=== PATIENT | female | born 1970 | race Caucasian/White ===

== ENCOUNTER → 2018-07-27 | Outpatient (CLI) | payer MEDICAID | END | disposition home or self-care (01) | LOC: RAH 09:11 | PROVIDERS: ATTEND Physician Assistant Medical | DX: Z12.31 Encounter for screening mammogram for malignant neoplasm of breast (principal) | CPT/HCPCS: 77067 ==

== ENCOUNTER → 2019-10-23 | Outpatient (CLI) | payer MEDICAID | END | disposition home or self-care (01) | LOC: RAH 13:54 | PROVIDERS: ATTEND Family Medicine | DX: Z12.31 Encounter for screening mammogram for malignant neoplasm of breast (principal) | CPT/HCPCS: 77067 ==

== ENCOUNTER → 2020-10-26 | Outpatient (CLI) | payer MEDICAID | END | disposition home or self-care (01) | LOC: RAH 15:27 | PROVIDERS: ATTEND Obstetrics & Gynecology | DX: Z12.31 Encounter for screening mammogram for malignant neoplasm of breast (principal) | CPT/HCPCS: 77067 ==

== ENCOUNTER → 2022-09-01 | Outpatient (CLI) | payer MEDICAID | END | disposition home or self-care (01) | LOC: RAH 11:06 | PROVIDERS: ATTEND Family Medicine | DX: N64.4 Mastodynia (principal) | CPT/HCPCS: 77066 ==

== ENCOUNTER 2023-02-06 10:33 | Emergency (ER) | payer MEDICAID ==
[~2023-02-06] VITALS: Ht 162.6 cm; Wt 95.3 kg
[2023-02-06] MEDS ORDERED: KETOROLAC 15MG/ML VIAL (15MG/ML) IV ONE ×2 (12:00→16:30)
[2023-02-06 12:02] LABS: BASOPHILS # (AUTO) 0.05 K/uL (0.00-0.20); BASOPHILS % (AUTO) 0.6 % (0.0-5.0); EOSINOPHILS # (AUTO) 0.11 K/uL (0.00-0.70); EOSINOPHILS % (AUTO) 1.3 % (0.0-8.0); HEMATOCRIT 38.5 % (36-48); IMMATURE GRANULOCYTE ABSOLUTE 0.02 K/uL (0-1); LYMPHOCYTES # (AUTO) 2.5 K/uL (1.0-4.8); LYMPHOCYTES % (AUTO) 30.1 % (21.0-51.0); MEAN CORPUSCULAR HEMOGLOBIN 30.5 pg (27.0-33.0); MEAN CORPUSCULAR VOLUME 92.3 fL (79-99); MONOCYTES # (AUTO) 0.6 K/uL (0.1-1.0); MONOCYTES % (AUTO) 7.3 % (3.0-13.0); NEUTROPHILS # (AUTO) 5.1 K/uL (1.8-7.7); NEUTROPHILS % (AUTO) 60.5 % (40.0-77.0); PLATELET COUNT (AUTO) 194 K/uL (130-400); RED BLOOD CELL COUNT(AUTO) 4.17 MIL/uL (4.00-5.50); RED CELL DISTRIBUTION WIDTH 12.1 % (11.0-15.5); WHITE BLOOD COUNT (AUTO) 8.4 K/uL (4.8-10.8)
[2023-02-06 12:18] LABS: ALBUMIN 3.5 g/dL (3.5-5.0); BILIRUBIN,TOTAL 0.3 mg/dL (0.2-1.0); CREATININE 0.9 mg/dL (0.5-1.5); POTASSIUM 3.3 mmol/L (3.5-5.1); TOTAL PROTEIN, SERUM 7.4 g/dL (6.0-8.3)
[2023-02-06 12:22] LABS: B-TYPE NATRIURETIC PEPTIDE 67 pg/mL (0-100)
[2023-02-06 12:50] LABS: APPEARANCE,URINE CLEAR (CLEAR); BILIRUBIN,URINE NEGATIVE (NEGATIVE); COLOR,URINE LIGHT-YELLOW (YELLOW); GLUCOSE, URINE (UA) NEGATIVE (NEGATIVE); KETONES,URINE NEGATIVE (NEGATIVE); LEUKOCYTE ESTERASE ,URINE 75 Leu/uL (NEGATIVE); NITRATE,URINE NEGATIVE (NEGATIVE); OCCULT BLOOD,URINE NEGATIVE (NEGATIVE); PROTEIN,URINE NEGATIVE (NEGATIVE); UROBILINOGEN,URINE 0.2 mg/dL (0.2-1.0)
[2023-02-06 12:52] LABS: ADD UA MICROSCOPIC YES
[2023-02-06] MEDS ORDERED: POTASSIUM BICARB/CIT AC 25 MEQ TABLET.EFF PO ONE (13:00)
[2023-02-06 13:05] LABS: MUCUS,URINE RARE LPF (None Seen); SQUAMOUS EPITHELIAL CELL,UR FEW /HPF (0-2); TRANSITIONAL EPI CELLS,URINE RARE /HPF (None Seen)
[2023-02-06] MEDS ORDERED: CEFTRIAXONE 1G VIAL IVPB ONE (14:00)
[2023-02-06] MEDS ORDERED: IOHEXOL-350 75 ML VIAL IV ONE (14:59)
[2023-02-06] MEDS ORDERED: CEPH500B PO (15:53)
[2023-02-06 16:05] VITALS: BP 125/71; PULSE 62; RESP 18; O2SAT 98
== END 2023-02-06 16:41 | disposition home or self-care (01) ==
LOC: EDH 10:33
DX: K80.20 Calculus of gallbladder without cholecystitis without obstruction (principal); N39.0 Urinary tract infection, site not specified; R07.89 Other chest pain; R60.0 Localized edema; M54.50 Low back pain, unspecified; Z91.040 Latex allergy status; Z88.8 Allergy status to other drugs, medicaments and biological substances
CPT/HCPCS: 99285; 74177; 96374; 93971; 71045; 96375; 84484; 80053; 83880; 85025; 87088; 81001; 36415; 73562; 96376; 93005; J0696; J1885 ×2; Q9967

== ENCOUNTER 2023-02-20 10:09 | Emergency (ER) | payer MEDICAID ==
[~2023-02-20] VITALS: Ht 162.6 cm; Wt 95.3 kg
[~2023-02-20 10:09] MED LIST: CEPH500B PO
[2023-02-20 10:26] VITALS: BP 113/74; PULSE 83; RESP 20
[2023-02-20] MEDS ORDERED: DIPH,PERTUSS(ACELL),TET VAC/PF 0.5 ML VIAL IM ONE (10:30)
[2023-02-20] MEDS ORDERED: CEPH500B PO (12:22)
== END 2023-02-20 12:34 | disposition home or self-care (01) ==
LOC: EDH 10:09
DX: S90.572A Other superficial bite of ankle, left ankle, initial encounter (principal); Z90.49 Acquired absence of other specified parts of digestive tract; Z88.8 Allergy status to other drugs, medicaments and biological substances; W54.0XXA Bitten by dog, initial encounter; Y93.89 Activity, other specified; Y92.89 Other specified places as the place of occurrence of the external cause; Y99.8 Other external cause status
CPT/HCPCS: 73600; 90471; 90715

== ENCOUNTER 2023-08-26 11:05 | Emergency (ER) | payer MEDICAID ==
[~2023-08-26] VITALS: Ht 162.6 cm; Wt 98.4 kg
[2023-08-26 12:05] LABS: RAPID GROUP A STREP negative (NEGATIVE)
[2023-08-26 12:10] LABS: SARS-CoV-2, RNA, NAAT NEGATIVE SARS CoV-2 (NEGATIVE)
[2023-08-26 12:35] LABS: INFLUENZA TYPE A NEGATIVE FOR TYPE A (NEG); INFLUENZA TYPE B NEGATIVE FOR TYPE B (NEG)
[2023-08-26] MEDS ORDERED: KETO10TA2 PO (13:40)
[2023-08-26] MEDS ORDERED: METH4TAB3 PO (13:40)
[2023-08-26] MEDS ORDERED: AZIT250T9 PO (13:40)
[2023-08-26] MEDS: KETOROLAC 30MG VIAL (30MG/ML) IM ONE (13:50)
[2023-08-26] MEDS: DEXAMETHASONE SOD PHOSPHATE 4 MG/ML 1ML VIAL IM ONE (13:50)
[2023-08-26 13:58] VITALS: BP 124/75; PULSE 79; RESP 18; O2SAT 97
== END 2023-08-26 14:02 | disposition home or self-care (01) ==
LOC: EDH 11:05
DX: J02.9 Acute pharyngitis, unspecified (principal); E78.00 Pure hypercholesterolemia, unspecified; Z88.2 Allergy status to sulfonamides; Z88.8 Allergy status to other drugs, medicaments and biological substances; Z79.899 Other long term (current) drug therapy; Z20.822 Contact with and (suspected) exposure to COVID-19
CPT/HCPCS: 99284; 87635; 87880; 87804 ×2; 96372 ×2; J1100; J1885

== ENCOUNTER 2023-09-11 20:30 | Emergency (ER) | payer MEDICAID ==
[~2023-09-11] VITALS: Ht 162.6 cm; Wt 99.3 kg
[~2023-09-11 20:30] MED LIST changes: +AZIT250T9 PO; +KETO10TA2 PO; +METH4TAB3 PO
[2023-09-11 21:42] LABS: BASOPHILS # (AUTO) 0.03 K/uL (0.00-0.20); BASOPHILS % (AUTO) 0.3 % (0.0-5.0); EOSINOPHILS # (AUTO) 0.18 K/uL (0.00-0.70); EOSINOPHILS % (AUTO) 2.1 % (0.0-8.0); HEMATOCRIT 38.5 % (36-48); IMMATURE GRANULOCYTE ABSOLUTE 0.01 K/uL (0-1); LYMPHOCYTES # (AUTO) 3.5 K/uL (1.0-4.8); LYMPHOCYTES % (AUTO) 40.6 % (21.0-51.0); MEAN CORPUSCULAR HEMOGLOBIN 30.5 pg (27.0-33.0); MEAN CORPUSCULAR HGB CONC 33.8 g/dL (32.0-36.0); MEAN CORPUSCULAR VOLUME 90.4 fL (79-99); MONOCYTES # (AUTO) 0.7 K/uL (0.1-1.0); MONOCYTES % (AUTO) 7.6 % (3.0-13.0); NEUTROPHILS # (AUTO) 4.2 K/uL (1.8-7.7); NEUTROPHILS % (AUTO) 49.3 % (40.0-77.0); PLATELET COUNT (AUTO) 204 K/uL (130-400); RED BLOOD CELL COUNT(AUTO) 4.26 MIL/uL (4.00-5.50); RED CELL DISTRIBUTION WIDTH 12.4 % (11.0-15.5); WHITE BLOOD COUNT (AUTO) 8.6 K/uL (4.8-10.8)
[2023-09-11] MEDS: ACETAMINOPHEN 500 MG TABLET PO ONE (21:51)
[2023-09-11 21:57] LABS: CREATININE 1.1 mg/dL (0.5-1.0); POTASSIUM 3.9 mmol/L (3.5-5.1)
[2023-09-11] MEDS: KETOROLAC 30MG VIAL (30MG/ML) IM ONE (22:06)
[2023-09-11 22:21] LABS: INR <= 0.93 (0.85-1.15); PROTHROMBIN TIME 10.3 SEC (9.6-11.6)
[2023-09-11 22:22] LABS: PARTIAL THROMBOPLASTIN TIME 28.2 SEC (26.3-35.5)
[2023-09-11 23:16] LABS: APPEARANCE,URINE CLEAR (CLEAR); BILIRUBIN,URINE NEGATIVE (NEGATIVE); COLOR,URINE YELLOW (YELLOW); GLUCOSE, URINE (UA) NEGATIVE (NEGATIVE); KETONES,URINE NEGATIVE (NEGATIVE); LEUKOCYTE ESTERASE ,URINE NEGATIVE Leu/uL (NEGATIVE); NITRATE,URINE NEGATIVE (NEGATIVE); OCCULT BLOOD,URINE NEGATIVE (NEGATIVE); PROTEIN,URINE 20 mg/dL (NEGATIVE); UROBILINOGEN,URINE 0.2 mg/dL (0.2-1.0)
[2023-09-11 23:21] LABS: BACTERIA,URINE RARE /HPF (None Seen); MUCUS,URINE RARE LPF (None Seen); RBC,URINE 0-1 /HPF (0-1); SQUAMOUS EPITHELIAL CELL,UR MOD /HPF (0-2)
[2023-09-12] MEDS ORDERED: CYCL-309 PO (00:39)
[2023-09-12] MEDS: MORPHINE 4 MG SYG IM ONE (00:58)
[2023-09-12] MEDS ORDERED: ONDA-243 PO (01:24)
[2023-09-12] MEDS: ONDANSETRON ODT 4MG TAB SL ONE (01:29)
[2023-09-12 01:30] VITALS: BP 112/68; PULSE 92; RESP 16; O2SAT 99
== END 2023-09-12 01:33 | disposition home or self-care (01) ==
LOC: EDH 20:30
DX: S39.012A Strain of muscle, fascia and tendon of lower back, initial encounter (principal); E11.9 Type 2 diabetes mellitus without complications; E78.00 Pure hypercholesterolemia, unspecified; I10 Essential (primary) hypertension; X58.XXXA Exposure to other specified factors, initial encounter; Y93.89 Activity, other specified; Y92.89 Other specified places as the place of occurrence of the external cause; Y99.8 Other external cause status
CPT/HCPCS: 99284; 80048; 85025; 85610; 85730; 81001 ×2; 36415; 96372 ×2; J1885; J2270

== ENCOUNTER 2024-03-31 10:28 | Observation (INO) | payer MEDICAID ==
[~2024-03-31] VITALS: Ht 162.6 cm; Wt 102.1 kg
[~2024-03-31 10:28] MED LIST changes: +CYCL-309 PO; +ONDA-243 PO
[2024-03-31 11:24] LABS: BASOPHILS # (AUTO) 0.02 K/uL (0.00-0.20); BASOPHILS % (AUTO) 0.3 % (0.0-5.0); EOSINOPHILS # (AUTO) 0.03 K/uL (0.00-0.70); EOSINOPHILS % (AUTO) 0.4 % (0.0-8.0); IMMATURE GRANULOCYTE ABSOLUTE 0.02 K/uL (0-1); LYMPHOCYTES # (AUTO) 2.3 K/uL (1.0-4.8); LYMPHOCYTES % (AUTO) 31.8 % (21.0-51.0); MEAN CORPUSCULAR HEMOGLOBIN 30.3 pg (27.0-33.0); MEAN CORPUSCULAR HGB CONC 32.9 g/dL (32.0-36.0); MONOCYTES # (AUTO) 0.5 K/uL (0.1-1.0); MONOCYTES % (AUTO) 7.2 % (3.0-13.0); NEUTROPHILS # (AUTO) 4.2 K/uL (1.8-7.7); PLATELET COUNT (AUTO) 186 K/uL (130-400); RED BLOOD CELL COUNT(AUTO) 4.13 MIL/uL (4.00-5.50); RED CELL DISTRIBUTION WIDTH 12.8 % (11.0-15.5); WHITE BLOOD COUNT (AUTO) 7.1 K/uL (4.8-10.8)
[2024-03-31 11:39] LABS: CREATININE 0.8 mg/dL (0.5-1.0); POTASSIUM 3.7 mmol/L (3.5-5.1)
[2024-03-31 11:42] LABS: INR <= 0.93 (0.85-1.15); PROTHROMBIN TIME 10.3 SEC (9.6-11.6)
[2024-03-31 11:43] LABS: PARTIAL THROMBOPLASTIN TIME 27.2 SEC (26.3-35.5)
--- NOTE | 2024-03-31 11:44 | HMCIMG ---
SACRUM/COCCYX 2+VWS INDICATION: Fall, pain TECHNIQUE: SACRUM/COCCYX 2+VWS. FINDINGS/IMPRESSION: No displaced fracture or dislocation is seen. Correlate clinically. Degenerative changes of the visualized spine are seen. No radiopaque foreign body is identified.
--- NOTE | 2024-03-31 12:27 | HMCIMG ---
CT HEAD/BRAIN W/O CONTRAST INDICATION: Fall, LATHAM TECHNIQUE: CT HEAD/BRAIN W/O CONTRAST. CT was performed with one or more of the following dose reduction techniques: Automated exposure control, adjustment of the mA and/or kV according to the patient's size, or use of the iterative reconstruction technique. Comparison: None FINDINGS: The ventricles and extra ventricular CSF spaces are within normal limits. No mass effect, midline shift or herniation. No extra axial collection. No acute intracranial bleed. The visualized paranasal sinuses and mastoid air cells are normally aerated. Right periorbital/forehead soft tissue swelling is seen. IMPRESSION: No acute intracranial findings. Right periorbital/forehead soft tissue swelling
[2024-03-31 13:08] LABS: AMPHET/METH SCREEN,URINE NEGATIVE (NEGATIVE); BARBITURATE SCREEN, URINE NEGATIVE (NEGATIVE); BENZODIAZEPINES SCREEN,URINE NEGATIVE (NEGATIVE); CANNABINOID SCREEN,URINE NEGATIVE (NEGATIVE); COCAINE SCREEN,URINE NEGATIVE (NEGATIVE); OPIATE SCREEN,URINE NEGATIVE (NEGATIVE); PHENCYCLIDINE SCREEN,URINE NEGATIVE (NEGATIVE)
[2024-03-31 13:40] LABS: APPEARANCE,URINE CLEAR (CLEAR); BILIRUBIN,URINE NEGATIVE (NEGATIVE); COLOR,URINE LIGHT-YELLOW (YELLOW); GLUCOSE, URINE (UA) NEGATIVE (NEGATIVE); KETONES,URINE NEGATIVE (NEGATIVE); LEUKOCYTE ESTERASE ,URINE NEGATIVE Leu/uL (NEGATIVE); NITRATE,URINE NEGATIVE (NEGATIVE); OCCULT BLOOD,URINE NEGATIVE (NEGATIVE); PROTEIN,URINE NEGATIVE (NEGATIVE); UROBILINOGEN,URINE 0.2 mg/dL (0.2-1.0)
[2024-03-31 13:44] LABS: MUCUS,URINE RARE LPF (None Seen); RBC,URINE 0-1 /HPF (0-1); SQUAMOUS EPITHELIAL CELL,UR RARE /HPF (0-2)
[2024-03-31] MEDS: morPHINE 2 MG SYG IM ONE (13:53)
--- NOTE | 2024-03-31 15:36 | ERN ---
General Chief Complaint: Mechanical Fall Stated Complaint: FALL Time Seen by MD: 10:39 Time Seen by Midlevel: 10:39 Source: patient History of Present Illness Initial Comments 53-year-old female who presents to the ED due to due to a fall that occurred yesterday. Patient reports she does not recall what happened, last thing patient remembers is sitting at a table. Blurry vision from the right eye, tailbone pain, and severe headache but denies any further associated symptoms. Patient states there was only one alcoholic beverage involve, denies any drug use, or smoking. Allergies: Coded Allergies: bacitracin (Verified Allergy, Unknown, 08/26/23) latex (Verified Allergy, Unknown, 08/26/23) sulfamethoxazole (Unverified Allergy, Unknown, 08/26/23) trimethoprim (Unverified Allergy, Unknown, 08/26/23) Home Meds Active Scripts Naproxen (Naproxen) 500 Mg Tablet, 1 TAB PO BID for pain for 30 Days, #60 TAB 0 Refills Prov:ATA BURT 04/01/24 Ondansetron (Ondansetron Odt) 4 Mg Tab.rapdis, 4 MG PO BID for 7 Days, #14 TAB Prov:MIGUELITO MCPHERSON 09/12/23 Cyclobenzaprine HCl (Cyclobenzaprine HCl) 10 Mg Tablet, 10 MG PO DAILYDINNER for 7 Days, #7 TAB Prov:MIGUELITO MCPHERSON 09/12/23 Ketorolac Tromethamine (Ketorolac Tromethamine) 10 Mg Tablet, 10 MG PO BID for 5 Days, #10 TAB Prov:MIGUELITO MCPHERSON 09/12/23 Ketorolac Tromethamine (Ketorolac Tromethamine) 10 Mg Tablet, 10 MG PO BID for 5 Days, #10 TAB Prov:MIGUELITO MCPHERSON 08/26/23 Methylprednisolone (Medrol) 4 Mg Tab.ds.pk, 4 MG PO AD, #1 PACK Prov:MIGUELITO MCPHERSON 08/26/23 Azithromycin (Azithromycin) 250 Mg Tablet, 250 MG PO DAILY for 5 Days, #6 TAB Take two 250mg tablets by mouth on day 1, then take one 250mg tablets daily for 4 days. Prov:MIGUELITO MCPHERSON 08/26/23 Cephalexin Monohydrate (Keflex) 500 Mg Cap, 500 MG PO QID for 7 Days, #28 CAP Prov:JAY JAY FRAGOSO MD 02/20/23 Cephalexin Monohydrate (Keflex) 500 Mg Cap, 500 MG PO TID for 7 Days, #21 CAP 0 Refills Prov:JEANNETTE SORIA 02/06/23 Past Medical History Past Medical History: Diabetes-Type II, High Cholesterol, Hypertension Medical History Other: HX OF HERNIATED DISCS Past Surgical History: Tonsillectomy, Other Surgical History Other: NOSE SURGERY Social History Social History: Negative ROS Dictation Constitutional: Negative for fever,chills, and weight loss Eyes: Positive for blurry vision from the right eye Negative for injury, pain,redness, and discharge ENT: Negative for injury,pain or swelling Cardiovascular: Negative for chest pain, palpitations, and edema Respiratory: Negative for shortness of breath, cough, and wheezing, Abdomen/GI: Negative for abdominal pain, nausea, vomiting, diarrhea, and constipation Back: Negative for injury and pain : Negative for painful urination, bleeding or discharge MS/Extremity: Positive for tailbone pain Negative for injury and deformity Skin: Negative for rash, and discoloration Neuro: Positive for headache Negative for weakness, numbness, tingling, and seizure Psych: Negative for suicide ideation, homicidal ideation, and hallucinations Physical Exam Physical Exam Dictation General: awake, alert, no acute distress Head/Face: Normocephalic, right periorbital and frontal ecchymosis and swelling Eyes: PERRL, EOMI, normal conjunctiva ENT: oral cavity clear, oral mucosa moist Neck: Normal range of motion Cardiovascular: RRR, normal S1/S2 Respiratory: CTAB, no respiratory distress, no rales or wheezes Abdomen: Soft, non-tender, non-distended, no guarding or rebound. Back: Sacral tenderness Skin: Warm, dry, normal turgor, no rash MS/Extremity: Pulses equal, no cyanosis, neurovascular intact, FROM Neuro: COAx4, GCS 15, strength 5/5, CN 2-12 intact, normal cerebellar exam Psych: Normal behavior, mood, and affect normal Results Laboratory and Microbiology Lab and Micro Result Labs Reviewed?: Yes EKG/XRAY/US/CT/MRI EKG Comment Date: 03/31/2024 Time: 17:19 Rate: 92 EKG interpretation: Sinus rhythm, normal EKG, no STEMI Reviewed by ED Attending X-RAY Comment REASON: Fall, pain ORDERING PHYSICIAN: ZACHARIAH CRAIG PROCEDURE: SAC CHARLIE 2V - SACRUM/COCCYX 2+VWS SACRUM/COCCYX 2+VWS INDICATION: Fall, pain TECHNIQUE: SACRUM/COCCYX 2+VWS. FINDINGS/IMPRESSION: No displaced fracture or dislocation is seen. Correlate clinically. Degenerative changes of the visualized spine are seen. No radiopaque foreign body is identified. CT Scan Comment REASON: Fall, LATHAM ORDERING PHYSICIAN: ZACHARIAH CRAIG PROCEDURE: HEAD WO - CT HEAD/BRAIN W/O CONTRAST CT HEAD/BRAIN W/O CONTRAST INDICATION: Fall, LATHAM TECHNIQUE: CT HEAD/BRAIN W/O CONTRAST. CT was performed with one or more of the following dose reduction techniques: Automated exposure control, adjustment of the mA and/or kV according to the patient's size, or use of the iterative reconstruction technique. Comparison: None FINDINGS: The ventricles and extra ventricular CSF spaces are within normal limits. No mass effect, midline shift or herniation. No extra axial collection. No acute intracranial bleed. The visualized paranasal sinuses and mastoid air cells are normally aerated. Right periorbital/forehead soft tissue swelling is seen. IMPRESSION: No acute intracranial findings. Right periorbital/forehead soft tissue swelling MDM MDM: Differential diagnosis: TIA, intracranial hemorrhage, subarachnoid hemorrhage Rationale: 53-year-old female who presents to the ED due to due to a fall that occurred yesterday. Patient reports she does not recall what happened, last thing patient remembers is sitting at a table. Blurry vision from the right eye, tailbone pain, and severe headache but denies any further associated symptoms. Patient states there was only one alcoholic beverage involve, denies any drug use, or smoking. Per physical examination no neurological deficits noted. Labs obtained are nonspecific. UA negative for urinary tract infection. Drug screen negative. Serum alcohol at 17. X-ray indicates no fractures or dislocation to her sacrum and coccyx. Patient able to ambulate however tender on palpation of the sacral aspect. CT head indicates no acute intracranial findings, right periorbital/forehead soft tissue swelling. Tele neuro consultation placed due to patient's history of the event and symptoms. Tele neuro consult performed and recommendations were discussed with Dr. Contreras. Per evaluation no neurological deficits were noted, discussion of admitting the patient for MRI due to retrograde amnesia, she also recommended telemetry monitoring and Neurology referral as outpatient, no stroke workup if MRI is negative. Case was discussed with Dr. Ridley who accepted admission. Patient is stable for admission. Previous outside records reviewed: Old ER visits. Risk of complication and/or morbidity or mortality of patient management: None Medications-Per medication reconciliation Need for hospitalization: Patient does meet criteria for hospitalization. Need for emergency major/minor surgery: No There are no social concerns with this patient. Prescription drug management Prescriptions will include symptomatic care Patient's prior external medical records from other ER visits were reviewed by me as indicated. Prior testing and results from previous visits were reviewed. Prior tests were taken into account with medical decision making and resource utilization, independent historian/historians were used to obtain complete medical history. I independently interpreted the test that were performed, results were reviewed by me and considered findings on radiology if ordered. Medical management and examination interpretation discussions were had by me with other qualified healthcare professionals as indicated for the patient's care. ED Course Critical Care Note Critical Time: 30 minutes Comments Critical Care Procedure Note Authorized and Performed by: me Total critical care time: Approximately 36 minutes Due to a high probability of clinically significant, life threatening deterioration, the patient required my highest level of preparedness to intervene emergently and I personally spent this critical care time directly and personally managing the patient. This critical care time included obtaining a history; examining the patient; pulse oximetry; ordering and review of studies; arranging urgent treatment with development of a management plan; evaluation of patient's response to treatment; frequent reassessment; and, discussions with other providers. This critical care time was performed to assess and manage the high probability of imminent, life-threatening deterioration that could result in multi-organ failure. It was exclusive of separately billable procedures and treating other patients and teaching time. Please see MDM section and the rest of the note for further information on patient assessment and treatment. DX & DISP Disposition: Inpatient Decision to Admit Date: Mar 31, 2024 Departure Impression: Primary Impression: Closed head injury Additional Impressions: Syncopal episodes, Fall, Headache, Vision changes Condition: Stable Scripts Naproxen (Naproxen) 500 Mg Tablet 1 TAB PO BID for pain for 30 Days, #60 TAB 0 Refills Prov: ATA BURT 04/01/24 Referrals: RYLEY NAVARRO (PCP) I performed this substantive portion of this visit. I have reviewed and personally made and approve the management plan that is documented in the note by myself or the DONAL. I acknowledge full responsibility for the patient's management plan. ZACHARIAH CRAIG Mar 31, 2024 15:36 JAY JAY FRAGOSO MD Apr 01, 2024 18:08
--- NOTE | 2024-03-31 17:21 | EKG ---
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
[2024-03-31] MEDS ORDERED: guaiFENesin-DM 200/20MG 10ML PO PRN (17:30)
[2024-03-31] MEDS ORDERED: MAG/ALUM/SIMETH 30 ML UDCUP PO PRN (17:30)
[2024-03-31] MEDS ORDERED: NITROGLYCERIN 0.4 MG SL TAB SL PRN (17:30)
[2024-03-31] MEDS ORDERED: FAMOTIDINE 20MG VIAL IV PRN (17:30)
[2024-03-31] MEDS ORDERED: MAGNESIUM 2GM PREMIX 50ML 50 ML IV PRN (17:30)
[2024-03-31] MEDS ORDERED: LACTULOSE 20 GM/30 ML UDCUP PO PRN (17:30)
[2024-03-31] MEDS ORDERED: PoTASSium chloRIDE 20MEQ ER 20 MEQ ERTAB PO PRN (17:30)
[2024-03-31] MEDS ORDERED: ondanSETRON 4MG INJ IV PRN (17:30)
[2024-03-31] MEDS ORDERED: HYDROcodone/APAP 5/325 1 TAB TABLET PO PRN ×2 (17:30)
[2024-03-31] MEDS ORDERED: DiphenhydrAMINE HCL 25 MG CAPSULE PO PRN (17:30)
[2024-03-31] MEDS ORDERED: PoTASSium chl 10% ELIXIR 20MEQ 20 MEQ/15 ML UDCUP PO PRN (17:30)
[2024-03-31] MEDS ORDERED: PoTASSium chloRIDE 20MEQ/100ML 100 ML IV PRN (17:30)
[2024-03-31] MEDS ORDERED: DiphenhydrAMINE HCL 50 MG/ML VIAL IV PRN (17:30)
[2024-03-31] MEDS ORDERED: acetaMINOPHEN 325 MG TAB PO PRN ×2 (17:30)
[2024-03-31] MEDS ORDERED: LORazepam 2 MG/ML 1 ML VIAL IVP PRN (18:00)
[2024-03-31] MEDS ORDERED: PHARMACY COMMUNICATION MISC PRN (18:00)
[2024-03-31] MEDS ORDERED: chlordiazePOXIDE HCL 25 MG CAP PO PRN (18:00)
--- NOTE | 2024-03-31 18:00 | HP ---
[facility] HISTORY AND PHYSICAL Date of Service: Mar 31, 2024 Time of Service: 17:41 HISTORY OF PRESENT ILLNESS: 53-year-old female who presented to the ED after a fall from standing where she hit her head. She reports that she was at [employer] dinner last night where alcohol was being served. Around 11:00 p.m. is the last memory that she has where she was sitting at the table scrolling through her phone. The rest of the history she states was given to her by her daughter who was at the event with her. She reports that she had multiple falls, the 1st being when she fell on her behind from the table, her daughter was then helping her to the car where she tripped over her dress and they both fell to the floor. The patient reports that she did hit her head however she does not know if she lost consciousness at that time. A gentleman at the events helped her up and escalate her to the car where she was set with the door open in her legs out while her daughter when around the car to smoke a cigarette. Her daughter then told her when she came back around she saw her mother was face down on the concrete and had lost consciousness. She was driven home where the daughter's helped her into the house and into bed. She does have a vague memory of asking her son-in-law not to let her fall. This morning when she woke up she was concerned as she had difficulty seeing out of her right eye, she does have a notable abrasion with some surrounding swelling. Upon arrival to the ED the patient did have her blood drawn for a blood alcohol level which was measured at 17 mg/dL. Given that her last drink was at 11:00 p.m. last night, using retrograde extrapolation with an average decay rate of 16.5 mg/dL per hour of alcohol from her system we can reasonably conclude that her blood alcohol level at the time of the incident was approximally 215 mg/dL or .21% which would put her in the range to be having blackouts stumbling and memory loss. Patient admits to a history of drinking and had a DWI approximately 18 months ago however she states that she has not had a drink since then. Although she states she only had one drink at the event, given her blood alcohol level was still elevated 12 hours afterwards, calls this statement into question and is concerning that she may no longer be sober. Emergency physician concerned that she had a syncopal event which is the reason she is being admitted. CT of the head is negative for intracranial bleed. We will order an MRI to rule out stroke as a cause and we will order orthostatic vital signs. She will be placed on a threat monitoring analyst to assess for paroxysmal atrial fibrillation as another underlying cause for possible loss of consciousness. REVIEW OF SYSTEMS 12 point ROS negativer unless noted in HPI PAST MEDICAL HISTORY: Depression Insomnia PAST SURGICAL HISTORY: Multiple excision of soft tissue mass and cysts Removal of adenoids and tonsils Bilateral laser eye surgery D&C x 3 PAST SOCIAL HISTORY: Hx of alcohol, cocaine use, reports sobriety at this time for 18 months Denies tobacco use Works at [employer] Coded Allergies: bacitracin (Verified Allergy, Unknown, 08/26/23) latex (Verified Allergy, Unknown, 08/26/23) sulfamethoxazole (Unverified Allergy, Unknown, 08/26/23) trimethoprim (Unverified Allergy, Unknown, 08/26/23) PHYSICAL EXAM GENERAL APPEARANCE: The patient is awake, alert, and oriented, in no acute cardiopulmonary distress. NEUROLOGICAL: Cranial nerves II-XII grossly intact. Motor is 5/5 in bilateral upper and lower extremities proximal to distal. No sensory deficits. HEENT: Face is symmetric. Pupils are equal and reactive. Extraocular movements are intact. NECK: Supple. No JVD. No thyromegaly. No submental, submandibular, pre- /postauricular, occipital or supraclavicular lymphadenopathy. CHEST: Normal chest expansion. No Telemetry. LUNGS: Absence of any rales, rhonchi or any wheezing. CARDIOVASCULAR: Regular. S1 and S2 normal. No appreciable rubs, murmurs or gallops. ABDOMEN: Soft, nontender, and nondistended. There is no rebound, voluntary guarding, or rigidity. : Deferred. No Reyes. EXTREMITIES: Non-edematous and not cyanotic. No clubbing. Good capillary refill. SKIN: No skin breakdown. Vital Sign (Last 24 Hours) 03/31/24 17:16 Temp 98.2 Pulse 78 Resp 20 B/P (MAP) 117/79 Pulse Ox 98 O2 Delivery Room Air* O2 Flow Rate 0 FiO2 21 LABS: Laboratory: Test 03/31/24 12:52 03/31/24 11:14 Range/Units Urine Color LIGHT-YELLOW YELLOW Urine Appearance CLEAR CLEAR Urine pH 5.0 5.0-8.0 Urine Specific Hydes 1.023 1.001-1.031 Urine Protein NEGATIVE NEGATIVE mg/dL Urine Glucose (UA) NEGATIVE NEGATIVE mg/dL Urine Ketones NEGATIVE NEGATIVE mg/dL Urine Occult Blood NEGATIVE NEGATIVE Urine Nitrate NEGATIVE NEGATIVE Urine Bilirubin NEGATIVE NEGATIVE mg/dL Urine Urobilinogen 0.2 0.2-1.0 mg/dL Urine Leukocyte Esterase NEGATIVE NEGATIVE Shaniqua/uL Urine RBC 0-1 0-1 /HPF Urine WBC 2-5 H 0-1 /HPF Urine Squamous Epithelial Cells RARE 0-2 /HPF Urine Bacteria None None Seen /HPF Urine HCG, Qualitative NEGATIVE NEGATIVE Urine Opiates Screen NEGATIVE NEGATIVE Urine Barbiturates Screen NEGATIVE NEGATIVE Urine Phencyclidine Screen NEGATIVE NEGATIVE Urine Amphetamines Screen NEGATIVE NEGATIVE Urine Benzodiazepines Screen NEGATIVE NEGATIVE Urine Cocaine Screen NEGATIVE NEGATIVE Urine Marijuana (THC) Screen NEGATIVE NEGATIVE White Blood Count 7.1 4.8-10.8 K/uL Red Blood Count 4.13 4.00-5.50 MIL/uL Hemoglobin 12.5 12.0-16.0 g/dL Hematocrit 38.0 36-48 % Mean Corpuscular Volume 92.0 79-99 fL Mean Corpuscular Hemoglobin 30.3 27.0-33.0 pg Mean Corpuscular Hemoglobin Concent 32.9 32.0-36.0 g/dL Red Cell Distribution Width 12.8 11.0-15.5 % Platelet Count 186 130-400 K/uL Mean Platelet Volume 11.1 H 7.5-10.5 fL Immature Granulocyte % (Auto) 0.3 0-1 % Neutrophils (%) (Auto) 60.0 40.0-77.0 % Lymphocytes (%) (Auto) 31.8 21.0-51.0 % Monocytes (%) (Auto) 7.2 3.0-13.0 % Eosinophils (%) (Auto) 0.4 0.0-8.0 % Basophils (%) (Auto) 0.3 0.0-5.0 % Neutrophils # (Auto) 4.2 1.8-7.7 K/uL Lymphocytes # (Auto) 2.3 1.0-4.8 K/uL Monocytes # (Auto) 0.5 0.1-1.0 K/uL Eosinophils # (Auto) 0.03 0.00-0.70 K/uL Basophils # (Auto) 0.02 0.00-0.20 K/uL Absolute Immature Granulocyte (auto 0.02 0-1 K/uL Nucleated Red Blood Cells 0.0 0.0-0.19 % Prothrombin Time 10.3 9.6-11.6 SEC Prothromb Time International Ratio <= 0.93 0.85-1.15 Activated Partial Thromboplast Time 27.2 26.3-35.5 SEC Sodium Level 141 136-145 mmol/L Potassium Level 3.7 3.5-5.1 mmol/L Chloride Level 108 101-111 mmol/L Carbon Dioxide Level 30 21-32 mmol/L Blood Urea Nitrogen 12 7-18 mg/dL Creatinine 0.8 0.5-1.0 mg/dL Glomerular Filtration Rate Calc 88 >90 mL/min Random Glucose 85 70-105 mg/dL Total Calcium 8.7 8.5-10.1 mg/dL Serum Alcohol 17 H 0-10 mg/dL Current Medications Medications (Trade) Dose Ordered Sig/Clem Route PRN Reason Start Time Stop Time Status Last Admin Dose Admin Acetaminophen (TYLenol 325MG TAB) 650 mg Q4H PRN PO MILD PAIN (1-3) 03/31/24 17:30 04/30/24 17:29 UNV Acetaminophen (TYLenol 325MG TAB) 650 mg Q6H PRN PO TEMPERATURE GREATER THAN 101.5 03/31/24 17:30 04/30/24 17:29 UNV Acetaminophen/ Hydrocodone Bitart (NORco 5/325MG) 1 tab Q4H PRN PO MODERATE PAIN (4-6) 03/31/24 17:30 04/05/24 17:29 UNV Acetaminophen/ Hydrocodone Bitart (NORco 5/325MG) 2 tab Q4H PRN PO SEVERE PAIN (7-10) 03/31/24 17:30 04/05/24 17:29 UNV Al Hydroxide/Mg Hydroxide (MAALox PLUS 30ML) 30 ml Q6H PRN PO INDIGESTION 03/31/24 17:30 04/30/24 17:29 UNV Diphenhydramine HCl (BENAdryl CAP) 25 mg Q4H PRN PO MILD ITCHING/RASH 03/31/24 17:30 04/30/24 17:29 UNV Diphenhydramine HCl (BENAdryl INJ) 25 mg Q6H PRN IV SEVERE ITCHING/RASH 03/31/24 17:30 04/30/24 17:29 UNV Famotidine (Pepcid 20mg Vial) 20 mg BID PRN IV NAUSEA/VOMITING 03/31/24 17:30 04/30/24 17:29 UNV Famotidine (Pepcid 20mg Tab) 20 mg BID PO 03/31/24 21:00 04/30/24 20:59 UNV Guaifenesin/ Dextromethorphan (RobiTUSSin DM 200/20MG 10ML) 10 ml Q4H PRN PO COUGH 03/31/24 17:30 04/30/24 17:29 UNV Ketorolac Tromethamine (toRADol) 15 mg Q6H PRN IV BREAKTHROUGH PAIN ONLY 03/31/24 17:30 04/05/24 17:29 UNV Lactulose (Constulose 20gm/ 30ml Udcup) 20 gm BID PRN PO CONSTIPATION 03/31/24 17:30 04/30/24 17:29 UNV Lidocaine (Lidocaine Patch 4%) 1 each DAILY TP 04/01/24 09:00 05/01/24 08:59 UNV Magnesium Sulfate 50 ml @ 0 mls/hr PROTOCOL PRN IV MAGNESIUM PROTOCOL 03/31/24 17:30 04/30/24 17:29 UNV Nitroglycerin (Nitrostat) 0.4 mg PROTOCOL PRN SL CHEST PAIN 03/31/24 17:30 04/30/24 17:29 UNV Ondansetron HCl (zoFRAN 4MG INJ) 4 mg Q6H PRN IV NAUSEA/VOMITING 03/31/24 17:30 04/30/24 17:29 UNV Potassium Chloride 100 ml @ 100 mls/hr AD PRN IV POTASSIUM PROTOCOL 03/31/24 17:30 04/30/24 17:29 UNV Potassium Chloride (K-Dur/Klor-Con 20meq) 20 meq AD PRN PO POTASSIUM PROTOCOL 03/31/24 17:30 04/30/24 17:29 UNV Potassium Chloride (KCl 10% Elixir 20meq/15ml) 20 meq AD PRN PO POTASSIUM PROTOCOL 03/31/24 17:30 04/30/24 17:29 UNV DIAGNOSTICS / RADIOLOGY: [ ] ASSESSMENT: Head trauma Fall from standing Acute alcohol intoxication Retrograde memory loss Loss of consciousness Right eye abrasion with swelling PLAN: - Admit on telemetry, follow up tomorrow to assess for paroxysmal afib - MRI of head pending will follow up - Start banana bag - Start CIWA protocol - Orthostatic vital signs ordered - Neuro checks q4hr Disposition: pending MRI, orthostatic vital signs ADVANCED CARE PLANNING 1. Which of the following were discussed? Hospice Care - Yes Therapeutic options - Yes Advance Directives - Yes-patient does not have any advanced directives in place at this time. Other discussions -patient wishes to remain a full code at this time. 2. Discussed with who? Patient 3. Voluntary nature of this service was explained to the patient? Yes 4. Amount of time spent - 16 minutes__ 5. Reviewed by Physician? (if this service was performed by NPP) Yes AZALIA SANTOS MD Mar 31, 2024 18:00
[2024-03-31] MEDS: ketOROlac 15MG/ML VIAL (15MG/ML) IV PRN (18:40)
[2024-03-31] MEDS: FAMOTIDINE 20MG TAB PO SCH (20:21)
[2024-03-31] MEDS: THIAMINE HCL 100 MG, FOLic ACID 5 MG/ML VIAL 1 MG, M.V.I. IV [ADULT] 10 ML in 0.9%NACL ... IV SCH (20:22)
--- NOTE | 2024-03-31 20:34 | NUR ---
ATTEMPTED TO OBTAIN ORTHOSTATIC VS ORDERED, PATIENT STATED UNABLE TO STAND UP DUE TO BACK PAIN
[2024-04-01 07:36] LABS: BASOPHILS # (AUTO) 0.03 K/uL (0.00-0.20); BASOPHILS % (AUTO) 0.5 % (0.0-5.0); EOSINOPHILS # (AUTO) 0.12 K/uL (0.00-0.70); EOSINOPHILS % (AUTO) 1.9 % (0.0-8.0); HEMATOCRIT 34.6 % (36-48); IMMATURE GRANULOCYTE ABSOLUTE 0.02 K/uL (0-1); MEAN CORPUSCULAR HEMOGLOBIN 29.8 pg (27.0-33.0); MEAN CORPUSCULAR HGB CONC 32.1 g/dL (32.0-36.0); MONOCYTES # (AUTO) 0.4 K/uL (0.1-1.0); MONOCYTES % (AUTO) 6.7 % (3.0-13.0); NEUTROPHILS # (AUTO) 2.8 K/uL (1.8-7.7); NEUTROPHILS % (AUTO) 43.6 % (40.0-77.0); PLATELET COUNT (AUTO) 170 K/uL (130-400); RED BLOOD CELL COUNT(AUTO) 3.72 MIL/uL (4.00-5.50); RED CELL DISTRIBUTION WIDTH 12.9 % (11.0-15.5); WHITE BLOOD COUNT (AUTO) 6.4 K/uL (4.8-10.8)
[2024-04-01 08:02] LABS: CREATININE 0.8 mg/dL (0.5-1.0); PHOSPHORUS 3.5 mg/dL (2.5-4.9); POTASSIUM 3.8 mmol/L (3.5-5.1)
[2024-04-01] MEDS: LIDOCAINE 4% ADH..PATCH TP SCH (08:13)
--- NOTE | 2024-04-01 08:28 | NUR ---
TO MRI AT THIS TIME
--- NOTE | 2024-04-01 09:17 | HMCIMG ---
MR BRAIN WO CON HISTORY: Status post fall COMPARISON: Chest CT from 03/31/2024 TECHNIQUE: MRI of the brain was performed utilizing multiple pulse sequences in axial, coronal and sagittal planes. Patient was not given contrast through intravenous route. FINDINGS: The ventricles and extraventricular CSF spaces are nondilated for patient's age. There is no midline shift, mass effect or herniation. No subacute hemorrhage is seen. No MR evidence of acute infarct is seen in the diffusion weighted images. Cerebellar tonsils are in normal position. No evidence of mucoperiosteal thickening is seen of the visualized paranasal sinuses. No MR evidence of a mass lesion is seen in this noncontrast study. IMPRESSION: 1. No MR evidence of acute infarct is seen in the diffusion weighted images.
--- NOTE | 2024-04-01 12:31 | PN ---
[facility] PROGRESS NOTE Date of Service: Apr 01, 2024 Time of Service: 11:44 SUBJECTIVE: 04/01 - patient seen at bedside in ED 16, afebrile, normotensive, saturating well on room air. Patient recalls having consumed three martinis before her LOC event. Patient currently receiving one of three banana bag and under CIWA protocol. Patient MRI results show no evidence of acute infarction. Patient states she is feeling better now but has pain from falling onto the concrete several times. All imaging is negative. We will continue to monitor on telemetry for possible paroxysmal atrial fibrillation and orthostatic results pending. If patient remains stable, possible discharge today. REVIEW OF SYSTEMS 12 point ROS negativer unless noted in HPI PHYSICAL EXAM GENERAL APPEARANCE: The patient is awake, alert, and oriented, in no acute cardiopulmonary distress. NEUROLOGICAL: Cranial nerves II-XII grossly intact. Motor is 5/5 in bilateral upper and lower extremities proximal to distal. No sensory deficits. HEENT: Face is symmetric. Pupils are equal and reactive. Extraocular movements are intact. NECK: Supple. No JVD. No thyromegaly. No submental, submandibular, pre- /postauricular, occipital or supraclavicular lymphadenopathy. CHEST: Normal chest expansion. No Telemetry. LUNGS: Absence of any rales, rhonchi or any wheezing. CARDIOVASCULAR: Regular. S1 and S2 normal. No appreciable rubs, murmurs or gallops. ABDOMEN: Soft, nontender, and nondistended. There is no rebound, voluntary guarding, or rigidity. : Deferred. No Reyes. EXTREMITIES: Non-edematous and not cyanotic. No clubbing. Good capillary refill. SKIN: No skin breakdown. Vital Signs (last 8hr) Date Time Temp Pulse Resp B/P (MAP) Pulse Ox O2 Delivery O2 Flow Rate FiO2 04/01/24 10:45 67 16 129/77 98 Room Air* 0 04/01/24 07:38 97.9 65 14 112/69 98 Room Air* 0 21 04/01/24 06:21 74 16 104/62 95 Room Air* 0 21 04/01/24 05:18 69 14 105/46 95 Room Air* 0 21 LABS: Laboratory: Test 04/01/24 07:25 03/31/24 19:23 03/31/24 12:52 03/31/24 11:14 Range/Units White Blood Count 6.4 4.8-10.8 K/uL Red Blood Count 3.72 L 4.00-5.50 MIL/uL Hemoglobin 11.1 L 12.0-16.0 g/dL Hematocrit 34.6 L 36-48 % Mean Corpuscular Volume 93.0 79-99 fL Mean Corpuscular Hemoglobin 29.8 27.0-33.0 pg Mean Corpuscular Hemoglobin Concent 32.1 32.0-36.0 g/dL Red Cell Distribution Width 12.9 11.0-15.5 % Platelet Count 170 130-400 K/uL Mean Platelet Volume 11.3 H 7.5-10.5 fL Immature Granulocyte % (Auto) 0.3 0-1 % Neutrophils (%) (Auto) 43.6 40.0-77.0 % Lymphocytes (%) (Auto) 47.0 21.0-51.0 % Monocytes (%) (Auto) 6.7 3.0-13.0 % Eosinophils (%) (Auto) 1.9 0.0-8.0 % Basophils (%) (Auto) 0.5 0.0-5.0 % Neutrophils # (Auto) 2.8 1.8-7.7 K/uL Lymphocytes # (Auto) 3.0 1.0-4.8 K/uL Monocytes # (Auto) 0.4 0.1-1.0 K/uL Eosinophils # (Auto) 0.12 0.00-0.70 K/uL Basophils # (Auto) 0.03 0.00-0.20 K/uL Absolute Immature Granulocyte (auto 0.02 0-1 K/uL Nucleated Red Blood Cells 0.0 0.0-0.19 % Sodium Level 142 136-145 mmol/L Potassium Level 3.8 3.5-5.1 mmol/L Chloride Level 109 101-111 mmol/L Carbon Dioxide Level 29 21-32 mmol/L Blood Urea Nitrogen 16 7-18 mg/dL Creatinine 0.8 0.5-1.0 mg/dL Glomerular Filtration Rate Calc 88 >90 mL/min Random Glucose 90 70-105 mg/dL Total Calcium 8.3 L 8.5-10.1 mg/dL Phosphorus Level 3.5 2.5-4.9 mg/dL Magnesium Level 2.00 1.80-2.40 mg/dL Whole Blood Glucose 163 H 70-110 MG/DL Urine Color LIGHT-YELLOW YELLOW Urine Appearance CLEAR CLEAR Urine pH 5.0 5.0-8.0 Urine Specific [place] 1.023 1.001-1.031 Urine Protein NEGATIVE NEGATIVE mg/dL Urine Glucose (UA) NEGATIVE NEGATIVE mg/dL Urine Ketones NEGATIVE NEGATIVE mg/dL Urine Occult Blood NEGATIVE NEGATIVE Urine Nitrate NEGATIVE NEGATIVE Urine Bilirubin NEGATIVE NEGATIVE mg/dL Urine Urobilinogen 0.2 0.2-1.0 mg/dL Urine Leukocyte Esterase NEGATIVE NEGATIVE [place]/uL Urine RBC 0-1 0-1 /HPF Urine WBC 2-5 H 0-1 /HPF Urine Squamous Epithelial Cells RARE 0-2 /HPF Urine Bacteria None None Seen /HPF Urine HCG, Qualitative NEGATIVE NEGATIVE Urine Opiates Screen NEGATIVE NEGATIVE Urine Barbiturates Screen NEGATIVE NEGATIVE Urine Phencyclidine Screen NEGATIVE NEGATIVE Urine Amphetamines Screen NEGATIVE NEGATIVE Urine Benzodiazepines Screen NEGATIVE NEGATIVE Urine Cocaine Screen NEGATIVE NEGATIVE Urine Marijuana (THC) Screen NEGATIVE NEGATIVE Prothrombin Time 10.3 9.6-11.6 SEC Prothromb Time International Ratio <= 0.93 0.85-1.15 Activated Partial Thromboplast Time 27.2 26.3-35.5 SEC Serum Alcohol 17 H 0-10 mg/dL Current Medications Medications (Trade) Dose Ordered Sig/Clem Route PRN Reason Start Time Stop Time Status Last Admin Dose Admin Acetaminophen (TYLenol 325MG TAB) 650 mg Q4H PRN PO MILD PAIN (1-3) 03/31/24 17:30 04/30/24 17:29 Acetaminophen (TYLenol 325MG TAB) 650 mg Q6H PRN PO TEMPERATURE GREATER THAN 101.5 03/31/24 17:30 04/30/24 17:29 Acetaminophen/ Hydrocodone Bitart (NORco 5/325MG) 1 tab Q4H PRN PO MODERATE PAIN (4-6) 03/31/24 17:30 04/05/24 17:29 Acetaminophen/ Hydrocodone Bitart (NORco 5/325MG) 2 tab Q4H PRN PO SEVERE PAIN (7-10) 03/31/24 17:30 04/05/24 17:29 Al Hydroxide/Mg Hydroxide (MAALox PLUS 30ML) 30 ml Q6H PRN PO INDIGESTION 03/31/24 17:30 04/30/24 17:29 Chlordiazepoxide HCl (LIBrium 25 MG CAP) 25 mg Q2H PRN PO ALCOHOL WITHDRAWAL PROTOCOL 03/31/24 18:00 04/07/24 17:59 Diphenhydramine HCl (BENAdryl CAP) 25 mg Q4H PRN PO MILD ITCHING/RASH 03/31/24 17:30 04/30/24 17:29 Diphenhydramine HCl (BENAdryl INJ) 25 mg Q6H PRN IV SEVERE ITCHING/RASH 03/31/24 17:30 04/30/24 17:29 Famotidine (Pepcid 20mg Vial) 20 mg BID PRN IV NAUSEA/VOMITING 03/31/24 17:30 03/31/24 18:01 DC Famotidine (Pepcid 20mg Tab) 20 mg BID PO 03/31/24 21:00 04/30/24 20:59 04/01/24 08:13 20 MG Guaifenesin/ Dextromethorphan (RobiTUSSin DM 200/20MG 10ML) 10 ml Q4H PRN PO COUGH 03/31/24 17:30 04/30/24 17:29 Ketorolac Tromethamine (toRADol) 15 mg Q6H PRN IV BREAKTHROUGH PAIN ONLY 03/31/24 17:30 04/05/24 17:29 03/31/24 18:40 15 MG Lactulose (Constulose 20gm/ 30ml Udcup) 20 gm BID PRN PO CONSTIPATION 03/31/24 17:30 04/30/24 17:29 Lidocaine (Lidocaine Patch 4%) 1 each DAILY TP 04/01/24 09:00 05/01/24 08:59 04/01/24 08:13 1 EACH Lorazepam (AtiVAN) 2 mg Q4H PRN IVP ALCOHOL WITHDRAWAL PROTOCOL 03/31/24 18:00 04/07/24 17:59 Magnesium Sulfate 50 ml @ 0 mls/hr PROTOCOL PRN IV MAGNESIUM PROTOCOL 03/31/24 17:30 04/30/24 17:29 Nitroglycerin (Nitrostat) 0.4 mg PROTOCOL PRN SL CHEST PAIN 03/31/24 17:30 04/30/24 17:29 Ondansetron HCl (zoFRAN 4MG INJ) 4 mg Q6H PRN IV NAUSEA/VOMITING 03/31/24 17:30 04/30/24 17:29 Pharmacy Profile Note (Pharmacy Communication) 1 each PROTOCOL PRN MISC ETOH Withdrawal Score changes 03/31/24 18:00 04/07/24 17:59 Potassium Chloride 100 ml @ 100 mls/hr AD PRN IV POTASSIUM PROTOCOL 03/31/24 17:30 04/30/24 17:29 Potassium Chloride (K-Dur/Klor-Con 20meq) 20 meq AD PRN PO POTASSIUM PROTOCOL 03/31/24 17:30 04/30/24 17:29 Potassium Chloride (KCl 10% Elixir 20meq/15ml) 20 meq AD PRN PO POTASSIUM PROTOCOL 03/31/24 17:30 03/31/24 18:01 DC Thiamine HCl 100 mg/Folic Acid 1 mg/Multivitamins/ Minerals 10 ml/ Sodium Chloride 1,011.2 ml @ 100 mls/ hr Q24H IV 03/31/24 18:00 04/03/24 04:07 03/31/24 20:22 100 MLS/HR DIAGNOSTICS / RADIOLOGY: [place] [address] IMAGING REPORT Signed PATIENT: OFELIA TORRES MR#: [id number] : 1970 SEX: F AGE: 53 LOCATION: [facility]IP ORDER 25 STATUS: ADM IN REPORT#: [id number] SERVICE 1717 REASON: TBI ORDERING PHYSICIAN: AZALIA SANTOS MD PROCEDURE: BRAIN WO - MR BRAIN WO CON MR BRAIN WO CON HISTORY: Status post fall COMPARISON: Chest CT from 03/31/2024 TECHNIQUE: MRI of the brain was performed utilizing multiple pulse sequences in axial, coronal and sagittal planes. Patient was not given contrast through intravenous route. FINDINGS: The ventricles and extraventricular CSF spaces are nondilated for patient's age. There is no midline shift, mass effect or herniation. No subacute hemorrhage is seen. No MR evidence of acute infarct is seen in the diffusion weighted images. Cerebellar tonsils are in normal position. No evidence of mucoperiosteal thickening is seen of the visualized paranasal sinuses. No MR evidence of a mass lesion is seen in this noncontrast study. IMPRESSION: 1. No MR evidence of acute infarct is seen in the diffusion weighted images. DICTATED BY: MARTIN CORREA MD DATE: 04/01/24911 ELECTRONICALLY SIGNED BY: MARTIN CORREA MD DATE: 04/01/24916 ASSESSMENT: Head trauma Fall from standing Acute alcohol intoxication Retrograde memory loss Loss of consciousness Right eye abrasion with swelling PLAN: - assess for paroxysmal afib - Continue banana bag - Continue CIWA protocol - Orthostatic vital signs ordered - Neuro checks q4hr Disposition: pending orthostatic vital signs ADVANCED CARE PLANNING 1. Which of the following were discussed? Hospice Care - Yes Therapeutic options - Yes Advance Directives - Yes-patient does not have any advanced directives in place at this time. Other discussions -patient wishes to remain a full code at this time. 2. Discussed with who? Patient 3. Voluntary nature of this service was explained to the patient? Yes 4. Amount of time spent - 16 minutes__ 5. Reviewed by Physician? (if this service was performed by NPP) Yes ATTESTATION BY PHYSICIAN I have seen and examined the patient. I reviewed the documentation, medical decision making, and treatment plan as noted by the resident provider above. I agree with the findings and plan of care. Sabrina Lopez MD, PRIYA N Apr 01, 2024 12:31
--- NOTE | 2024-04-01 15:11 | NUR ---
CHANGED BACK INTO [facility]RE[facility], [facility].
--- NOTE | 2024-04-01 15:30 | NUR ---
FLOOR NURSE-ERNESTINA RN, TO PREPARE DISCHARGE DUE TO INPATIENT STATUS. LEARNING CONSULTANT AWARE.
[2024-04-01] MEDS ORDERED: NAPR-1023 PO (15:48)
--- NOTE | 2024-04-01 15:52 | DS ---
Discharge Summary Hospital Course Summary: 53-year-old female who presented to the ED after a fall from standing where she hit her head. She reports that she was at [employer] dinner last night where alcohol was being served. Around 11:00 p.m. is the last memory that she has where she was sitting at the table scrolling through her phone. The rest of the history she states was given to her by her daughter who was at the event with her. She reports that she had multiple falls, the 1st being when she fell on her behind from the table, her daughter was then helping her to the car where she tripped over her dress and they both fell to the floor. The patient reports that she did hit her head however she does not know if she lost consciousness at that time. A gentleman at the events helped her up and escalate her to the car where she was set with the door open in her legs out while her daughter when around the car to smoke a cigarette. Her daughter then told her when she came back around she saw her mother was face down on the concrete and had lost consciousness. She was driven home where the daughter's helped her into the house and into bed. She does have a vague memory of asking her son-in-law not to let her fall. This morning when she woke up she was concerned as she had difficulty seeing out of her right eye, she does have a notable abrasion with some surrounding swelling. Upon arrival to the ED the patient did have her blood drawn for a blood alcohol level which was measured at 17 mg/dL. Given that her last drink was at 11:00 p.m. last night, using retrograde extrapolation with an average decay rate of 16.5 mg/dL per hour of alcohol from her system we can reasonably conclude that her blood alcohol level at the time of the incident was approximally 215 mg/dL or .21% which would put her in the range to be having blackouts stumbling and memory loss. Patient admits to a history of drinking and had a DWI approximately 18 months ago however she states that she has not h ad a drink since then. Although she states she only had one drink at the event, given her blood alcohol level was still elevated 12 hours afterwards, calls this statement into question and is concerning that she may no longer be sober. CT of the head is negative for intracranial bleed. MRI was negative for intracranial bleeding. Patient is currently hemodynamically stable and asking to be sent home. Patient has been medically cleared and will be discharged today. Procedure(s): [place] [id number] [id number] IMAGING REPORT Signed PATIENT: OFELIA TORRES MR#: [id number] : 1970 SEX: F AGE: 53 LOCATION: EDH ORDER 03 STATUS: REG ER REPORT#: [id number] SERVICE 110 REASON: Fall, LATHAM ORDERING PHYSICIAN: ZACHARIAH CRAIG PROCEDURE: HEAD WO - CT HEAD/BRAIN W/O CONTRAST CT HEAD/BRAIN W/O CONTRAST INDICATION: Fall, LATHAM TECHNIQUE: CT HEAD/BRAIN W/O CONTRAST. CT was performed with one or more of the following dose reduction techniques: Automated exposure control, adjustment of the mA and/or kV according to the patient's size, or use of the iterative reconstruction technique. Comparison: None FINDINGS: The ventricles and extra ventricular CSF spaces are within normal limits. No mass effect, midline shift or herniation. No extra axial collection. No acute intracranial bleed. The visualized paranasal sinuses and mastoid air cells are normally aerated. Right periorbital/forehead soft tissue swelling is seen. IMPRESSION: No acute intracranial findings. Right periorbital/forehead soft tissue swelling DICTATED BY: KRISTA CRUM MD DATE: 03/31/24 1223 ELECTRONICALLY SIGNED BY: KRISTA CRUM MD DATE: 03/31/[address] [id number] IMAGING REPORT Signed PATIENT: OFELIA TORRES MR#: [id number] : 1970 SEX: F AGE: 53 LOCATION: EDH ORDER 03 STATUS: REG ER [facility] REPORT#: [id number] SERVICE 110 REASON: Fall, pain ORDERING PHYSICIAN: ZACHARIAH CRAIG PROCEDURE: SAC CHARLIE 2V - SACRUM/COCCYX 2+VWS SACRUM/COCCYX 2+VWS INDICATION: Fall, pain TECHNIQUE: SACRUM/COCCYX 2+VWS. FINDINGS/IMPRESSION: No displaced fracture or dislocation is seen. Correlate clinically. Degenerative changes of the visualized spine are seen. No radiopaque foreign body is identified. DICTATED BY: KRISTA CRUM MD DATE: 03/31/24 114 ELECTRONICALLY SIGNED BY: KRISTA CRUM MD DATE: 03/31/[address] [address] IMAGING REPORT Signed PATIENT: OFELIA TORRES MR#: [id number] : 1970 SEX: F AGE: 53 LOCATION: [facility]IP ORDER 25 STATUS: ADM IN REPORT#: [id number] SERVICE 16 REASON: TBI ORDERING PHYSICIAN: AZALIA SANTOS MD PROCEDURE: BRAIN WO - MR BRAIN WO CON MR BRAIN WO CON HISTORY: Status post fall COMPARISON: Chest CT from 03/31/2024 TECHNIQUE: MRI of the brain was performed utilizing multiple pulse sequences in axial, coronal and sagittal planes. Patient was not given contrast through intravenous route. FINDINGS: The ventricles and extraventricular CSF spaces are nondilated for patient's age. There is no midline shift, mass effect or herniation. No subacute hemorrhage is seen. No MR evidence of acute infarct is seen in the diffusion weighted images. Cerebellar tonsils are in normal position. No evidence of mucoperiosteal thickening is seen of the visualized paranasal sinuses. No MR evidence of a mass lesion is seen in this noncontrast study. IMPRESSION: 1. No MR evidence of acute infarct is seen in the diffusion weighted images. DICTATED BY: MARTIN CORREA MD DATE: 04/01/24911 ELECTRONICALLY SIGNED BY: MARTIN CORREA MD DATE: 04/01/24916 Assessment/Plan: ASSESSMENT: Head trauma Fall from standing Acute alcohol intoxication Retrograde memory loss Loss of consciousness Right eye abrasion with swelling Discharge Instructions: Follow-up with PCP in 3-5 days Home Medications: Active Scripts Ondansetron (Ondansetron Odt) 4 Mg Tab.rapdis, 4 MG PO BID for 7 Days, #14 TAB Prov:MIGUELITO MCPHERSON 09/12/23 Cyclobenzaprine HCl (Cyclobenzaprine HCl) 10 Mg Tablet, 10 MG PO DAILYDINNER for 7 Days, #7 TAB Prov:MIGUELITO MCPHERSON 09/12/23 Ketorolac Tromethamine (Ketorolac Tromethamine) 10 Mg Tablet, 10 MG PO BID for 5 Days, #10 TAB Prov:MIGUELITO MCPHERSON 09/12/23 Ketorolac Tromethamine (Ketorolac Tromethamine) 10 Mg Tablet, 10 MG PO BID for 5 Days, #10 TAB Prov:MIGUELITO MCPHERSON 08/26/23 Methylprednisolone (Medrol) 4 Mg Tab.ds.pk, 4 MG PO AD, #1 PACK Prov:MIGUELITO MCPHERSON 08/26/23 Azithromycin (Azithromycin) 250 Mg Tablet, 250 MG PO DAILY for 5 Days, #6 TAB Take two 250mg tablets by mouth on day 1, then take one 250mg tablets daily for 4 days. Prov:MIGUELITO MCPHERSON 08/26/23 Cephalexin Monohydrate (Keflex) 500 Mg Cap, 500 MG PO QID for 7 Days, #28 CAP Prov:JAY JAY FRAGOSO MD 02/20/23 Cephalexin Monohydrate (Keflex) 500 Mg Cap, 500 MG PO TID for 7 Days, #21 CAP 0 Refills Prov:JEANNETTE SORIA 02/06/23 New Medications: Naproxen (Naproxen) 500 Mg Tablet 1 TAB PO BID for pain for 30 Days, #60 TAB 0 Refills Continued Medications: Azithromycin (Azithromycin) 250 Mg Tablet 250 MG PO DAILY for 5 Days, #6 TAB Take two 250mg tablets by mouth on day 1, then take one 250mg tablets daily for 4 days. Cephalexin Monohydrate (Keflex) 500 Mg Cap 500 MG PO TID for 7 Days, #21 CAP 0 Refills Cephalexin Monohydrate (Keflex) 500 Mg Cap 500 MG PO QID for 7 Days, #28 CAP Cyclobenzaprine HCl (Cyclobenzaprine HCl) 10 Mg Tablet 10 MG PO DAILYDINNER for 7 Days, #7 TAB Ketorolac Tromethamine (Ketorolac Tromethamine) 10 Mg Tablet 10 MG PO BID for 5 Days, #10 TAB Ketorolac Tromethamine (Ketorolac Tromethamine) 10 Mg Tablet 10 MG PO BID for 5 Days, #10 TAB Methylprednisolone (Medrol) 4 Mg Tab.ds.pk 4 MG PO AD, #1 PACK Ondansetron (Ondansetron Odt) 4 Mg Tab.rapdis 4 MG PO BID for 7 Days, #14 TAB Time spent arranging discharge: 1-30 minutes ATTESTATION BY PHYSICIAN I have seen and examined the patient. I reviewed the documentation, medical decision making, and treatment plan as noted by the resident provider above. I agree with the findings and plan of care. Sabrina Lopez MD, PRIYA N Apr 01, 2024 15:52
[2024-04-01 17:19] VITALS: BP 118/60; PULSE 70; RESP 18; TEMP 97.9; O2SAT 98
== END 2024-04-01 17:28 | disposition home or self-care (01) ==
LOC: EDH 10:28 → EDHIP 10:29
PROVIDERS: ADMIT Internal Medicine; ATTEND Internal Medicine
DX: S09.90XA Unspecified injury of head, initial encounter (principal); R55 Syncope and collapse; R51.9 Headache, unspecified; H53.8 Other visual disturbances; I10 Essential (primary) hypertension; E11.9 Type 2 diabetes mellitus without complications; E78.00 Pure hypercholesterolemia, unspecified; Z79.899 Other long term (current) drug therapy; Z79.2 Long term (current) use of antibiotics; Z88.8 Allergy status to other drugs, medicaments and biological substances; Z91.040 Latex allergy status; W18.30XA Fall on same level, unspecified, initial encounter; Y93.89 Activity, other specified; Y92.89 Other specified places as the place of occurrence of the external cause; Y99.8 Other external cause status
CPT/HCPCS: 96372; 96365; 96366 ×2; 96375; 80048 ×2; 80305; 85025 ×2; 85610; 85730; 82948; 81001; 81025; 36415 ×2; 72220; 70450; 70551; 99291; 93005; 96376; 83735; 84100; G0378 ×21; J2270; J7030; J3411; J3490; J1885 ×2

== ENCOUNTER 2024-05-24 07:39 | Emergency (ER) | payer MEDICAID ==
[~2024-05-24] VITALS: Ht 162.6 cm; Wt 96.6 kg
[~2024-05-24 07:39] MED LIST changes: +NAPR-1023 PO
--- NOTE | 2024-05-24 08:01 | ERN ---
ED Note History of Present Illness Stated Complaint: COUGH Chief Complaint: Cough Time Seen by MD: 07:46 Dictation: The patient is a 53-year-old morbidly obese female with a medical history of insomnia presented to the emergency department, reporting chest pressure and a cough that began on Monday. The onset of her symptoms coincided while her son was cleaning the bathroom using bleach, which she inhaled. Over the past two days, she has experienced fever accompanied by chills, chest pressure, and neck pain. Additionally, she reports pain during swallowing and some shortness of breath upon exertion. The cough she describes is dry and nonproductive. She denies experiencing nausea, vomiting, abdominal pain, hemoptysis, generalized body aches, or any other symptoms. Furthermore, she has no recent history of illnesses or hospitalizations and has no prior history of stroke, myocardial infarction, or major surgeries. Allergies: Coded Allergies: bacitracin (Verified Allergy, Unknown, 08/26/23) latex (Verified Allergy, Unknown, 08/26/23) sulfamethoxazole (Unverified Allergy, Unknown, 08/26/23) trimethoprim (Unverified Allergy, Unknown, 08/26/23) Home Meds Active Scripts Albuterol Sulfate (Ventolin Hfa) 90 Mcg Hfa.aer.ad, 2 PUFF IH Q6HPRN PRN for wheezing for 10 Days, #18 GM 0 Refills Prov:ADDY BURT MD 05/24/24 Benzonatate (Tessalon Perles) 100 Mg Cap, 1 CAP PO TID for cough for 10 Days, #30 CAP 0 Refills Prov:ADDY BURT MD 05/24/24 Oseltamivir Phosphate (Tamiflu) 75 Mg Cap, 1 CAP PO BID for 5 Days, #10 CAP 0 Refills Prov:ADDY BURT MD 05/24/24 Naproxen (Naproxen) 500 Mg Tablet, 1 TAB PO BID for pain for 30 Days, #60 TAB 0 Refills Prov:ATA BURT 04/01/24 Ondansetron (Ondansetron Odt) 4 Mg Tab.rapdis, 4 MG PO BID for 7 Days, #14 TAB Prov:MIGUELITO MCPHERSON 09/12/23 Cyclobenzaprine HCl (Cyclobenzaprine HCl) 10 Mg Tablet, 10 MG PO DAILYDINNER for 7 Days, #7 TAB Prov:MIGUELITO MCPHERSON 09/12/23 Ketorolac Tromethamine (Ketorolac Tromethamine) 10 Mg Tablet, 10 MG PO BID for 5 Days, #10 TAB Prov:MIGUELITO MCPHERSON 09/12/23 Ketorolac Tromethamine (Ketorolac Tromethamine) 10 Mg Tablet, 10 MG PO BID for 5 Days, #10 TAB Prov:MIGUELITO MCPHERSON 08/26/23 Methylprednisolone (Medrol) 4 Mg Tab.ds.pk, 4 MG PO AD, #1 PACK Prov:MIGUELITO MCPHERSON 08/26/23 Azithromycin (Azithromycin) 250 Mg Tablet, 250 MG PO DAILY for 5 Days, #6 TAB Take two 250mg tablets by mouth on day 1, then take one 250mg tablets daily for 4 days. Prov:MIGUELITO MCPHERSON 08/26/23 Cephalexin Monohydrate (Keflex) 500 Mg Cap, 500 MG PO QID for 7 Days, #28 CAP Prov:JAY JAY FRAGOSO MD 02/20/23 Cephalexin Monohydrate (Keflex) 500 Mg Cap, 500 MG PO TID for 7 Days, #21 CAP 0 Refills Prov:JEANNETTE SORIA 02/06/23 Past Medical History Past Medical History: Diabetes-Type II, High Cholesterol, Hypertension Additional Past Medical Hx: HX OF HERNIATED DISCS Surgical History: Tonsillectomy, Other Surgical History Other: NOSE SURGERY Social History: Negative Review of System Dictation REVIEW OF SYSTEMS CONSTITUTIONAL: Complaints of fever with chills, no night sweats. No unintentional weight loss reported. NEUROLOGICAL: Denies headache, amaurosis fugax, motor weakness, sensory deficit, vertigo/spinning sensation, gait abnormalities, or tremors. ENT: No hearing loss, otalgia, otorrhea, rhinitis, rhinorrhea, hoarseness, or sore throat. CARDIOVASCULAR: Midsternal chest pressure, 5/10, nonradiating Denies any exertional angina, dyspnea on exertion, orthopnea, paroxysmal nocturnal dyspnea, palpitations, life-threatening arrhythmias, claudication. PULMONARY: Complaints of nonproductive cough, Denies any shortness of breath, cough, phlegm/sputum, hemoptysis, pleuritic chest pain. SLEEP: Denies morning headaches, daytime somnolence or napping. Denies difficulty falling asleep, staying asleep, waking from sleep. Denies knowledge of snoring. GASTROINTESTINAL: Denies any type of dysphagia to either liquids or solids. Denies nausea, vomiting, pyrosis, early satiety, abdominal pain, diarrhea, constipation, or changes in stool consistency or caliber. Denies coffee-ground emesis, hematemesis, hematochezia, or melanotic stools. GENITOURINARY: Denies frequency, urgency, nocturia, hematuria or incontinence (Storage/Irritative symptoms.) Low urinary stream, straining to void, urinary intermittency or hesitancy, splitting of the voiding stream, terminal dribbling. ENDOCRINOLOGIC: Denies polyuria, polydipsia, polyphagia or heat/cold intolerances. HEMATOLOGIC: Denies thrombophilia/previous clots, or coagulopathy/bleeding disorders. ONCOLOGIC: Denies personal history of malignancy. DERMATOLOGIC: Denies rashes or pruritus. PSYCHIATRIC: Denies any suicidal or homicidal ideation. Denies hallucinations. Initial Vital Sign VS Vital Signs Date Time Temp Pulse Resp B/P (MAP) Pulse Ox O2 Delivery O2 Flow Rate FiO2 05/24/24 07:39 99.0 97 18 103/79 96 Room Air 05/24/24 09:10 0 21 Physical Exam Dictation PHYSICAL EXAM GENERAL APPEARANCE: The patient is awake, alert, and oriented, in no acute cardiopulmonary distress. NEUROLOGICAL: Cranial nerves II-XII grossly intact. Motor is 5/5 in bilateral upper and lower extremities proximal to distal. No sensory deficits. HEENT: Face is symmetric. Pupils are equal and reactive. Extraocular movements are intact. NECK: Supple. No JVD. No thyromegaly. No submental, submandibular, pre- /postauricular, occipital or supraclavicular lymphadenopathy. CHEST: Normal chest expansion. No Telemetry. LUNGS: Absence of any rales, rhonchi or any wheezing. CARDIOVASCULAR: Regular. S1 and S2 normal. No appreciable rubs, murmurs or gallops. ABDOMEN: Soft, nontender, and nondistended. There is no rebound, voluntary guarding, or rigidity. : Deferred. No Reyes. EXTREMITIES: Non-edematous and not cyanotic. No clubbing. Good capillary refill. SKIN: No skin breakdown. Results (Laboratory/Radiology) Laboratory/Radiology Laboratory Tests Test 05/24/24 07:50 05/24/24 08:54 05/24/24 09:03 Influenza Type A Antigen Positive For Type A Influenza Type B Antigen Negative For Type B SARS-CoV-2 Antigen (Rapid) PRESUMPTIVE NEGATIVE Group A Streptococcus Rapid negative (NEGATIVE) Urine Color YELLOW (YELLOW) Urine Appearance CLOUDY (CLEAR) H Urine pH 5.5 (5.0-8.0) Urine Specific [place] 1.036 (1.001-1.031) Urine Protein 30 mg/dL (NEGATIVE) H Urine Glucose (UA) NEGATIVE mg/dL (NEGATIVE) Urine Ketones NEGATIVE mg/dL (NEGATIVE) Urine Occult Blood MODERATE (NEGATIVE) H Urine Nitrate NEGATIVE (NEGATIVE) Urine Bilirubin NEGATIVE mg/dL (NEGATIVE) Urine Urobilinogen 0.2 mg/dL (0.2-1.0) Urine Leukocyte Esterase NEGATIVE [place]/uL Urine RBC 2-5 /HPF (0-1) H Urine WBC 2-5 /HPF (0-1) H Urine Squamous Epithelial Cells MANY /HPF (0-2) Urine Other Crystals (Auto) 7 /HPF (None Seen) Urine Bacteria RARE /HPF (None Seen) Urine Hyaline Casts 2-5 /LPF (0-1 /LPF) H White Blood Count 3.8 K/uL (4.8-10.8) L Red Blood Count 4.40 MIL/uL (4.00-5.50) Hemoglobin 13.4 g/dL (12.0-16.0) Hematocrit 39.9 % (36-48) Mean Corpuscular Volume 90.7 fL (79-99) Mean Corpuscular Hemoglobin 30.5 pg (27.0-33.0) Mean Corpuscular Hemoglobin Concent 33.6 g/dL (32.0-36.0) Red Cell Distribution Width 12.4 % (11.0-15.5) Platelet Count 141 K/uL (130-400) Mean Platelet Volume 11.3 fL (7.5-10.5) H Immature Granulocyte % (Auto) 0.3 % (0-1) Neutrophils (%) (Auto) 56.6 % (40.0-77.0) Lymphocytes (%) (Auto) 23.0 % (21.0-51.0) Monocytes (%) (Auto) 17.5 % (3.0-13.0) H Eosinophils (%) (Auto) 2.1 % (0.0-8.0) Basophils (%) (Auto) 0.5 % (0.0-5.0) Neutrophils # (Auto) 2.2 K/uL (1.8-7.7) Lymphocytes # (Auto) 0.9 K/uL (1.0-4.8) L Monocytes # (Auto) 0.7 K/uL (0.1-1.0) Eosinophils # (Auto) 0.08 K/uL (0.00-0.70) Basophils # (Auto) 0.02 K/uL (0.00-0.20) Absolute Immature Granulocyte (auto 0.01 K/uL (0-1) Nucleated Red Blood Cells 0.0 % (0.0-0.19) White Cell Morphology Comment See comments Sodium Level 139 mmol/L (136-145) Potassium Level 3.9 mmol/L (3.5-5.1) Chloride Level 103 mmol/L (101-111) Carbon Dioxide Level 29 mmol/L (21-32) Blood Urea Nitrogen 15 mg/dL (7-18) Creatinine 0.9 mg/dL (0.5-1.0) Glomerular Filtration Rate Calc 76 mL/min (>90) Random Glucose 96 mg/dL (70-105) Total Calcium 8.9 mg/dL (8.5-10.1) Troponin I High Sensitivity < 4 ng/L (4-50) L ED Course ED Course Orders Procedure Category Date Status Time Influenza Type A & B, LAB 05/24/24 Complete Rapid 07:49 Covid19 (Sars Antigen LAB 05/24/24 Complete Rapid) 07:49 Rapid (Group A Strep) LAB 05/24/24 Complete 07:49 Cbc With Differential LAB 05/24/24 Complete 07:54 Basic Metabolic Panel LAB 05/24/24 Complete 07:54 Urinalysis Profile LAB 05/24/24 Complete 07:54 Chest 1vw RAD 05/24/24 Resulted 07:54 12 Lead Ekg Tracing- EKG 05/24/24 Complete Technical 07:56 Troponin I High LAB 05/24/24 Complete Sensitivity 07:56 Ibuprofen 600 Mg PHA 05/24/24 Complete Tablet (Motrin) 10:00 Current Medications Medications (Trade) Dose Ordered Sig/Clem Route PRN Reason Start Time Stop Time Status Last Admin Dose Admin Ibuprofen (moTRIN) 600 mg ONCE ONCE PO 05/24/24 10:00 05/24/24 10:01 DC 05/24/24 09:52 Vital Signs Date Time Temp Pulse Resp B/P (MAP) Pulse Ox O2 Delivery O2 Flow Rate FiO2 05/24/24 09:52 99.3 05/24/24 09:10 99.0 96 16 105/75 98 Room Air* 0 21 05/24/24 07:39 99.0 97 18 103/79 96 Room Air 07:50 The patient was examined in ED triage room 1. The vitals are blood pressure 103/79, pulse rates 101, SpO2 96 saturating on room air. She appears comfortable however in somewhat distress. We will order basic labs including CBC, BMP to rule out any infectious process. The patient is also complaining of chest pressure, we will obtain troponin and EKG to rule out chest pain of cardiac origin. Nasal/oral swabs will be collected to rule out strep/COVID/influenza. A chest x-ray will be obtained to rule out pneumonia. We will provide further recommendations once the labs and radiology investigations are resulted that if the patient requires any emergency treatment or inpatient hospitalization. We will closely monitor the patient. 10:00 The labs were reviewed and CBC and CMP did not show any abnormalities. The patient is positive for influenza A. Urinalysis showed moderate occult blood with cloudy appearance. Per patient she has been dehydrated and has not been drinking and drinking like she usually does. EKG showed sinus rhythm and troponin are within normal limits. At this point, the patient does not require any emergency treatment or inpatient hospitalization. She can be discharged with oral Tamiflu, Tessalon and albuterol inhaler as needed. The patient was informed and she agrees with the plan. The patient can be safely discharged home Medical Decision Making MDM MDM Differential diagnosis: Influenza a infection, acute viral syndrome, acute bronchitis, acute dehydration Rationale: Tests considered and ordered secondary to shared decision making include: Previous outside records reviewed: Old ER visits. Risk of complication and/or morbidity or mortality of patient management: None Medications-Per medication reconciliation Need for hospitalization: Patient does not meet criteria for hospitalization. Need for emergency major/minor surgery: No There are no social concerns with this patient. Prescription drug management Prescriptions will include symptomatic care Patient's prior external medical records from other ER visits were reviewed by me as indicated. Prior testing and results from previous visits were reviewed. Prior tests were taken into account with medical decision making and resource utilization, independent historian/historians were used to obtain complete medical history. I independently interpreted the test that were performed, results were reviewed by me and considered findings on radiology if ordered. DX & DISP Disposition: Discharge Departure Impression: Primary Impression: Influenza A Additional Impressions: Acute viral syndrome, Acute bronchitis, Acute dehydration Critical Time: 30 minutes Condition: Stable Scripts Albuterol Sulfate (Ventolin Hfa) 90 Mcg Hfa.aer.ad 2 PUFF IH Q6HPRN PRN for wheezing for 10 Days, #18 GM 0 Refills Prov: ADDY BURT MD 05/24/24 Benzonatate (Tessalon Perles) 100 Mg Cap 1 CAP PO TID for cough for 10 Days, #30 CAP 0 Refills Prov: ADDY BURT MD 05/24/24 Oseltamivir Phosphate (Tamiflu) 75 Mg Cap 1 CAP PO BID for 5 Days, #10 CAP 0 Refills Prov: ADDY BURT MD 05/24/24 Additional Instructions: Start taking Tamiflu 75 mg b.i.d. for 5 days. Start taking Tessalon 100 mg t.i.d. as needed for cough. Use albuterol inhaler 2 puffs q.6 as needed to help with shortness of breath.. Rest: Get enough sleep to help your body fight the infection. You might need to change your activities. Drink fluids: Drink water, juice, warm soups, or rehydration solutions. Take pain relievers: Acetaminophen (Tylenol) or ibuprofen (Advil, Motrin IB) can help with fever, headache, and muscle aches. Treat a sore throat: Gargle with warm salt water, use throat sprays, or try throat lozenges or hard candy. Treat a cough: Try honey, cough drops, or [id number] cough syrups. Use a humidifier: A cool mist humidifier can help if the air in your home is dry. Stay home: Stay home from work, school, or other public places until you feel better. Wash your hands: Wash your hands often with soap and water. Cover your mouth and nose: Cover your mouth and nose with a tissue when you cough or sneeze. Visit the nearest emergency department or call 911 should the symptoms get worse and if you experience chest pain, shortness of breath, blood in the sputum. Referrals: RYLEY NAVARRO (PCP) I have reviewed, & agreed with my scribe's, documentation. I have reviewed the case, and I agree with, Diagnosis and Plan I have examined patient, & reviewed all documents, & agreed W/ the Diagnosis, and Plan ADDY BURT MD May 24, 2024 08:01
[2024-05-24 08:18] LABS: RAPID GROUP A STREP negative (NEGATIVE)
[2024-05-24 08:28] LABS: COVID19 (SARS ANTIGEN RAPID) PRESUMPTIVE NEGATIVE (NEGATIVE); INFLUENZA TYPE B Negative For Type B (NEGATIVE)
--- NOTE | 2024-05-24 08:39 | HMCIMG ---
Exam Type: CHEST 1VW Clinical Information: Cough, r/o pneumonia Comparison: None Findings: The lungs are clear of infiltrates. The heart is normal in size. The bony and soft tissue structures of the chest are unremarkable. Impression: Clear lungs.
[2024-05-24 08:49] LABS: INFLUENZA TYPE A Positive For Type A (NEGATIVE)
[2024-05-24 09:10] VITALS: BP 105/75; PULSE 96; RESP 16; TEMP 99; O2SAT 98
[2024-05-24 09:16] LABS: APPEARANCE,URINE CLOUDY (CLEAR); BILIRUBIN,URINE NEGATIVE (NEGATIVE); COLOR,URINE YELLOW (YELLOW); GLUCOSE, URINE (UA) NEGATIVE (NEGATIVE); KETONES,URINE NEGATIVE (NEGATIVE); LEUKOCYTE ESTERASE ,URINE NEGATIVE Leu/uL (NEGATIVE); NITRATE,URINE NEGATIVE (NEGATIVE); OCCULT BLOOD,URINE MODERATE (NEGATIVE); PH,URINE 5.5 (5.0-8.0); PROTEIN,URINE 30 mg/dL (NEGATIVE); UROBILINOGEN,URINE 0.2 mg/dL (0.2-1.0)
[2024-05-24 09:21] LABS: ADD UA MICROSCOPIC YES
[2024-05-24 09:22] LABS: BACTERIA,URINE RARE /HPF (None Seen); MUCUS,URINE RARE LPF (None Seen); SQUAMOUS EPITHELIAL CELL,UR MANY /HPF (0-2); UNCLASSIFIED CRYSTAL 7 /HPF (None Seen)
[2024-05-24 09:22] LABS: BASOPHILS # (AUTO) 0.02 K/uL (0.00-0.20); BASOPHILS % (AUTO) 0.5 % (0.0-5.0); EOSINOPHILS # (AUTO) 0.08 K/uL (0.00-0.70); EOSINOPHILS % (AUTO) 2.1 % (0.0-8.0); HEMATOCRIT 39.9 % (36-48); IMMATURE GRANULOCYTE ABSOLUTE 0.01 K/uL (0-1); LYMPHOCYTES # (AUTO) 0.9 K/uL (1.0-4.8); MEAN CORPUSCULAR HEMOGLOBIN 30.5 pg (27.0-33.0); MEAN CORPUSCULAR HGB CONC 33.6 g/dL (32.0-36.0); MEAN CORPUSCULAR VOLUME 90.7 fL (79-99); MONOCYTES # (AUTO) 0.7 K/uL (0.1-1.0); MONOCYTES % (AUTO) 17.5 % (3.0-13.0); NEUTROPHILS # (AUTO) 2.2 K/uL (1.8-7.7); NEUTROPHILS % (AUTO) 56.6 % (40.0-77.0); PLATELET COUNT (AUTO) 141 K/uL (130-400); RED CELL DISTRIBUTION WIDTH 12.4 % (11.0-15.5); WHITE BLOOD COUNT (AUTO) 3.8 K/uL (4.8-10.8)
[2024-05-24 09:31] LABS: CREATININE 0.9 mg/dL (0.5-1.0); POTASSIUM 3.9 mmol/L (3.5-5.1)
--- NOTE | 2024-05-24 09:45 | EKG ---
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
[2024-05-24] MEDS: ibuPROFEN 600 MG TABLET PO ONE (09:52)
[2024-05-24 09:56] VITALS: TEMP 99
[2024-05-24] MEDS ORDERED: BENZ-39 PO (10:25)
[2024-05-24] MEDS ORDERED: OSEL75 PO (10:25)
[2024-05-24] MEDS ORDERED: ALBU18HF7 IH (10:25)
== END 2024-05-24 10:45 | disposition home or self-care (01) ==
LOC: EDH 07:39
DX: J10.1 Influenza due to other identified influenza virus with other respiratory manifestations (principal); J20.9 Acute bronchitis, unspecified; E86.0 Dehydration; E11.9 Type 2 diabetes mellitus without complications; E78.00 Pure hypercholesterolemia, unspecified; I10 Essential (primary) hypertension; Z79.899 Other long term (current) drug therapy; Z20.822 Contact with and (suspected) exposure to COVID-19; Z88.1 Allergy status to other antibiotic agents; Z88.2 Allergy status to sulfonamides; Z90.89 Acquired absence of other organs; Z98.890 Other specified postprocedural states
CPT/HCPCS: 36415; 71045; 80048; 81001; 84484; 85025; 87426; 87804; 87880; 93005; 99285

== ENCOUNTER 2024-08-22 20:28 | Emergency (ER) | payer MEDICAID ==
[~2024-08-22] VITALS: Ht 162.6 cm; Wt 99.3 kg
[~2024-08-22 20:28] MED LIST changes: +ALBU18HF7 IH; +BENZ-39 PO; -NAPR-1023 PO; +NAPR-1194 PO; +OSEL75 PO
[2024-08-22] MEDS: 0.9%NACL 1000ML 1,000 ML IV ONE (21:21)
[2024-08-22] MEDS: ketOROlac 15MG/ML VIAL (15MG/ML) IV ONE (21:22)
[2024-08-22] MEDS: Solu-medROL 125MG VIAL IVP ONE (21:22)
[2024-08-22 21:24] LABS: BASOPHILS # (AUTO) 0.06 K/uL (0.00-0.20); BASOPHILS % (AUTO) 0.6 % (0.0-5.0); EOSINOPHILS % (AUTO) 2.9 % (0.0-8.0); HEMATOCRIT 38.7 % (36-48); IMMATURE GRANULOCYTE ABSOLUTE 0.04 K/uL (0-1); LYMPHOCYTES # (AUTO) 3.4 K/uL (1.0-4.8); LYMPHOCYTES % (AUTO) 32.9 % (21.0-51.0); MEAN CORPUSCULAR HEMOGLOBIN 29.8 pg (27.0-33.0); MEAN CORPUSCULAR HGB CONC 32.3 g/dL (32.0-36.0); MEAN CORPUSCULAR VOLUME 92.4 fL (79-99); MONOCYTES # (AUTO) 0.7 K/uL (0.1-1.0); MONOCYTES % (AUTO) 6.5 % (3.0-13.0); NEUTROPHILS # (AUTO) 5.8 K/uL (1.8-7.7); NEUTROPHILS % (AUTO) 56.7 % (40.0-77.0); PLATELET COUNT (AUTO) 228 K/uL (130-400); RED BLOOD CELL COUNT(AUTO) 4.19 MIL/uL (4.00-5.50); RED CELL DISTRIBUTION WIDTH 12.8 % (11.0-15.5); WHITE BLOOD COUNT (AUTO) 10.2 K/uL (4.8-10.8)
[2024-08-22 21:32] LABS: CREATININE 0.9 mg/dL (0.5-1.0); POTASSIUM 4.2 mmol/L (3.5-5.1)
[2024-08-22] MEDS ORDERED: AZIT250T9 PO (21:51)
--- NOTE | 2024-08-22 21:51 | ERN ---
General Chief Complaint: Sore Throat Stated Complaint: C/O SORE THROAT, COUGH,UNABLE TO SLEEP Time Seen by MD: 20:40 Time Seen by Midlevel: 20:40 Source: patient History of Present Illness Initial Comments Patient is a 54 y/o female presenting to the ER for evaluation of flu like symptoms that have been ongoing for 3-4 days. Symptoms consist of a sore throat, chills, generalized body weakness, and a cough. she was seen in our emergency department 2 days ago for the same complaint but she reports her condition is worsening. Allergies: Coded Allergies: bacitracin (Verified Allergy, Unknown, 08/26/23) latex (Verified Allergy, Unknown, 08/26/23) sulfamethoxazole (Unverified Allergy, Unknown, 08/26/23) trimethoprim (Unverified Allergy, Unknown, 08/26/23) Home Meds Active Scripts Ketorolac Tromethamine (Ketorolac Tromethamine) 10 Mg Tablet, 1 TAB PO BID for pain for 5 Days, #10 TAB 0 Refills Prov:MIGUELITO MCPHERSON 08/22/24 Methylprednisolone (Medrol) 4 Mg Tab.ds.pk, 1 TAB PO AD for 6 Days, #21 TAB 0 Refills 6 on day 1 then reduce by one tablet daily until gone Prov:MIGUELITO MCPHERSON 08/22/24 Azithromycin (Azithromycin) 250 Mg Tablet, 1 TAB PO AD for 5 Days, #6 TAB 0 Refills 2 the first day followed by 1 for days 2-5 Prov:MIGUELITO MCPHERSON 08/22/24 Benzonatate (Tessalon Perles) 100 Mg Cap, 1-2 CAP PO Q4H for cough for 5 Days, #60 CAP 0 Refills Prov:CHRISTIANO CARRERO MD 08/20/24 Albuterol Sulfate (Ventolin Hfa) 90 Mcg Hfa.aer.ad, 2 PUFF IH Q6HPRN PRN for wheezing for 10 Days, #18 GM 0 Refills Prov:ADDY BURT MD 05/24/24 Benzonatate (Tessalon Perles) 100 Mg Cap, 1 CAP PO TID for cough for 10 Days, #30 CAP 0 Refills Prov:ADDY BURT MD 05/24/24 Oseltamivir Phosphate (Tamiflu) 75 Mg Cap, 1 CAP PO BID for 5 Days, #10 CAP 0 Refills Prov:ADDY BURT MD 05/24/24 Naproxen (Naproxen) 500 Mg Tablet, 1 TAB PO BID for pain for 30 Days, #60 TAB 0 Refills Prov:ATA BURT 04/01/24 Ondansetron (Ondansetron Odt) 4 Mg Tab.rapdis, 4 MG PO BID for 7 Days, #14 TAB Prov:MIGUELITO MCPHERSON 09/12/23 Cyclobenzaprine HCl (Cyclobenzaprine HCl) 10 Mg Tablet, 10 MG PO DAILYDINNER for 7 Days, #7 TAB Prov:MIGUELITO MCPHERSON 09/12/23 Ketorolac Tromethamine (Ketorolac Tromethamine) 10 Mg Tablet, 10 MG PO BID for 5 Days, #10 TAB Prov:MIGUELITO MCPHERSON 09/12/23 Ketorolac Tromethamine (Ketorolac Tromethamine) 10 Mg Tablet, 10 MG PO BID for 5 Days, #10 TAB Prov:MIGUELITO MCPHERSON 08/26/23 Methylprednisolone (Medrol) 4 Mg Tab.ds.pk, 4 MG PO AD, #1 PACK Prov:MIGUELITO MCPHERSON 08/26/23 Azithromycin (Azithromycin) 250 Mg Tablet, 250 MG PO DAILY for 5 Days, #6 TAB Take two 250mg tablets by mouth on day 1, then take one 250mg tablets daily for 4 days. Prov:MIGUELITO MCPHERSON 08/26/23 Cephalexin Monohydrate (Keflex) 500 Mg Cap, 500 MG PO QID for 7 Days, #28 CAP Prov:JAY JAY FRAGOSO MD 02/20/23 Cephalexin Monohydrate (Keflex) 500 Mg Cap, 500 MG PO TID for 7 Days, #21 CAP 0 Refills Prov:JEANNETTE SORIA 02/06/23 Past Medical History Past Medical History: No Pertinent History Medical History Other: ADHD; INSOMNIA Past Surgical History: Tonsillectomy Surgical History Other: NOSE SURGERY, tosillectomy Social History Social History: Negative ROS Dictation CONSTITUTIONAL: Negative except for HPI HEAD/FACE: Negative except for HPI EENT: Negative except for HPI RESPIRATORY: Negative except for HPI GASTROINTESTINAL/ABDOMINAL: Negative except for HPI GENITOURINARY: Negative except for HPI MUSCULOSKELETAL: Negative except for HPI INTEGUMENTARY: Negative except for HPI NEUROLOGICAL/PSYCH: Negative except for HPI HEMATOLOGIC/LYMPHATIC: Negative except for HPI All Systems Negative, Except as noted above. 13 point review of systems assessed and all negative except for above. Physical Exam Physical Exam Dictation Vital Signs reviewed General Appearance: Alert, oriented x 3, no acute distress, well developed, nourished. Head and Face: non-traumatic. Eyes: PERRL, pink conjunctivas, eyelid no trauma, anterior chamber with arcus senilis. Ears: Pinnas intact and no signs of trauma or erythema ear canals clear and no discharge TM no erythema Nose: No discharge, no bleeding. Oropharynx: Mouth normal, tongue pink, pharynx clear,no erythema, tonsils no exudates, no abscesses noted, mucous membrane moist Neck: Supple, non-tender, no thyromegaly, no masses, no JVD, no bruits Breast:Deferred Chest:No tenderness, no crepitus, no paradoxical movement, no retractions Lungs:Clear, well-ventilated, symmetric, no rales, no wheezing, no rhonchi, no stridor, good breath sounds bilaterally Heart: Regular rate, regular rhythm, no murmur, no gallops Vascular: no peripheral edema, Abdomen: Soft, positive bowel sounds, nondistended, no guarding, nontender, no rebound, no masses no hepatomegaly, no splenomegaly, no Wilson's sign, no hernias. Rectal: Deferred Genital: Deferred Neurological: Normal speech, motor function intact, sensory function intact Musculoskeletal: Neck nontender, full range of motion, back nontender, full range of motion, Extremities: nontender, full range of motion Skin: Color pink, dry, no turgor, no rash, no lacerations, no abrasions, no contusions. Lymphatic: Deferred Results Laboratory and Microbiology Lab and Micro Result Laboratory Tests Test 08/22/24 21:17 08/22/24 21:18 08/22/24 22:30 White Blood Count 10.2 K/uL (4.8-10.8) Red Blood Count 4.19 MIL/uL (4.00-5.50) Hemoglobin 12.5 g/dL (12.0-16.0) Hematocrit 38.7 % (36-48) Mean Corpuscular Volume 92.4 fL (79-99) Mean Corpuscular Hemoglobin 29.8 pg (27.0-33.0) Mean Corpuscular Hemoglobin Concent 32.3 g/dL (32.0-36.0) Red Cell Distribution Width 12.8 % (11.0-15.5) Platelet Count 228 K/uL (130-400) Mean Platelet Volume 10.9 fL (7.5-10.5) H Immature Granulocyte % (Auto) 0.4 % (0-1) Neutrophils (%) (Auto) 56.7 % (40.0-77.0) Lymphocytes (%) (Auto) 32.9 % (21.0-51.0) Monocytes (%) (Auto) 6.5 % (3.0-13.0) Eosinophils (%) (Auto) 2.9 % (0.0-8.0) Basophils (%) (Auto) 0.6 % (0.0-5.0) Neutrophils # (Auto) 5.8 K/uL (1.8-7.7) Lymphocytes # (Auto) 3.4 K/uL (1.0-4.8) Monocytes # (Auto) 0.7 K/uL (0.1-1.0) Eosinophils # (Auto) 0.30 K/uL (0.00-0.70) Basophils # (Auto) 0.06 K/uL (0.00-0.20) Absolute Immature Granulocyte (auto 0.04 K/uL (0-1) Nucleated Red Blood Cells 0.0 % (0.0-0.19) Sodium Level 142 mmol/L (136-145) Potassium Level 4.2 mmol/L (3.5-5.1) Chloride Level 106 mmol/L (101-111) Carbon Dioxide Level 32 mmol/L (21-32) Blood Urea Nitrogen 17 mg/dL (7-18) Creatinine 0.9 mg/dL (0.5-1.0) Glomerular Filtration Rate Calc 76 mL/min (>90) Random Glucose 122 mg/dL (70-105) H Total Calcium 9.3 mg/dL (8.5-10.1) Influenza Type A Antigen Negative For Type A Influenza Type B Antigen Negative For Type B SARS-CoV-2, RNA, NAAT NEGATIVE SARS CoV-2 Group A Streptococcus Rapid negative (NEGATIVE) Labs Reviewed?: Yes EKG/XRAY/US/CT/MRI X-RAY Comment REASON: sob ORDERING PHYSICIAN: MIGUELITO MCPHERSON PROCEDURE: CXR1VW - CHEST 1VW PORTABLE CHEST RADIOGRAPH INDICATION: sob COMPARISON: None FINDINGS: Heart size is normal. The pulmonary vascularity and chad appear normal. No abnormal pulmonary parenchymal opacity or consolidation identified. No significant pleural effusion noted. No pneumothorax detected. IMPRESSION: No radiographic evidence for any acute cardiopulmonary process. DICTATED BY: KAREN BURT MD DATE: 08/22/242158 [facility] MDM: Differential diagnosis: Upper respiratory infection, bronchitis, viral illness, pneumonia, dehydration Rationale: Patient is a 54 y/o female presenting to the ER for evaluation of flu like symptoms that have been ongoing for 3-4 days. Symptoms consist of a sore throat, chills, generalized body weakness, and a cough. she was seen in our emergency department 2 days ago for the same complaint but she reports her condition is worsening. Took over patient care from JESSICA Deal at 10:00 p.m. Patient received IV fluids, methylprednisolone, ketorolac and DuoNeb treatment in the ED. On re-examination patient verbalized she felt better. Labs obtained are nonspecific. Serology negative for influenza SARs and strep. Chest x-ray obtained indicating no acute cardiopulmonary process. Patient was educated on findings, diagnosis, and treatment. Advised to follow up with PCP. Return to the emergency department if any worsening symptoms. Patient verbalized understanding. Patient stable for discharge. There are no social concerns with this patient. Prescription drug management Prescriptions will include: Azithromycin, Medrol Medical management and examination interpretation discussions were had by me with other qualified healthcare professionals as indicated for the patient's care. ED Course Orders Procedure Category Date Status Time Cbc With Differential LAB 08/22/24 Complete 21:06 Basic Metabolic Panel LAB 08/22/24 Complete 21:06 Covid Rna Naat LAB 08/22/24 Complete 21:06 Influenza Type A & B, LAB 08/22/24 Complete Rapid 21:06 Chest 1vw RAD 08/22/24 Resulted 21:06 0.9%Nacl 1000ml (Ns PHA 08/22/24 Complete 1000ml) 21:30 Methylprednisolone PHA 08/22/24 Complete Succ 125mg (Solu-Medr 21:30 Ketorolac PHA 08/22/24 Complete Tromethamine 15mg/Ml 21:30 Ipratropium 0.5 PHA 08/22/24 Complete Mg/2.5 Ml Inh 21:30 Rapid (Group A Strep) LAB 08/22/24 Complete 22:36 Current Medications Medications (Trade) Dose Ordered Sig/Clem Route PRN Reason Start Time Stop Time Status Last Admin Dose Admin Ipratropium [place] (AtrovENT UD) 0.5 MG ONCE ONCE IH 08/22/24 21:30 08/22/24 21:31 DC 08/22/24 21:56 Ketorolac Tromethamine (toRADol) 15 mg ONCE ONCE IV 08/22/24 21:30 08/22/24 21:31 DC 08/22/24 21:22 Methylprednisolone Sodium Succinate (Solu-medROL 125MG) 120 mg ONCE ONCE IVP 08/22/24 21:30 08/22/24 21:31 DC 08/22/24 21:22 Sodium Chloride 1,000 ml @ 0 mls/hr ONCE ONCE IV 08/22/24 21:30 08/22/24 21:31 DC 08/22/24 21:21 Vital Signs Date Time Temp Pulse Resp B/P (MAP) Pulse Ox O2 Delivery O2 Flow Rate FiO2 08/22/24 21:57 83 18 N/A Room Air 21 08/22/24 21:57 83 18 08/22/24 21:00 105 20 154/67 96 Room Air* 0 21 08/22/24 20:30 98.1 100 20 139/84 96 Room Air DX & DISP Disposition: Discharge Departure Impression: Primary Impression: Upper respiratory infection Condition: Stable Scripts Albuterol Sulfate (Albuterol Sulfate) 2.5 Mg/0.5 Ml Vial.neb 2.5 MG IH Q4HPRN, #30 INH 0 Refills Prov: ZACHARIAH CRAIG 08/22/24 Ketorolac Tromethamine (Ketorolac Tromethamine) 10 Mg Tablet 1 TAB PO BID for pain for 5 Days, #10 TAB 0 Refills Prov: MIGUELITO MCPHERSON 08/22/24 Methylprednisolone (Medrol) 4 Mg Tab.ds.pk 1 TAB PO AD for 6 Days, #21 TAB 0 Refills 6 on day 1 then reduce by one tablet daily until gone Prov: MIGUELITO MCPHERSON 08/22/24 Azithromycin (Azithromycin) 250 Mg Tablet 1 TAB PO AD for 5 Days, #6 TAB 0 Refills 2 the first day followed by 1 for days 2-5 Prov: MIGUELITO MCPHERSON 08/22/24 Additional Instructions: Discharge home. Rest. Follow up with primary care DrMarie in 24 hours. Return to the ER for any acute changes or worsening symptoms. If any medications were prescribed take as directed. Okay to continue home medications unless otherwise discussed during your visit in the emergency room today. Patient was also advised to follow-up with primary care physician in 1 to 2 days for continued monitoring. Referrals: DEREK SILVA (PCP) Time of Disposition: 21:50 I have reviewed the case, and I agree with, Diagnosis and Plan I performed the substantive portion of the visit. I have reviewed and personally made and approve the management plan that is documented in the note by myself or the DONAL. I acknowledge for responsibility for the patient's management plan. MIGUELITO MCPHERSNO August 22, 2024 21:51 ZACHARIAH CRAIG August 22, 2024 23:13
[2024-08-22] MEDS: IpraTROPium 0.5 MG/2.5 ML INH IH ONE (21:56)
[2024-08-22 21:57] VITALS: PULSE 83; RESP 18; O2SAT 97
--- NOTE | 2024-08-22 22:02 | HMCIMG ---
PORTABLE CHEST RADIOGRAPH INDICATION: sob COMPARISON: None FINDINGS: Heart size is normal. The pulmonary vascularity and chad appear normal. No abnormal pulmonary parenchymal opacity or consolidation identified. No significant pleural effusion noted. No pneumothorax detected. IMPRESSION: No radiographic evidence for any acute cardiopulmonary process.
[2024-08-22 22:41] LABS: SARS-CoV-2, RNA, NAAT NEGATIVE SARS CoV-2 (NEGATIVE)
[2024-08-22 22:45] LABS: INFLUENZA TYPE A Negative For Type A (NEGATIVE); INFLUENZA TYPE B Negative For Type B (NEGATIVE)
[2024-08-22 23:00] VITALS: BP 123/82; PULSE 97; RESP 18; TEMP 98.1; O2SAT 96
[2024-08-22] MEDS ORDERED: AUD IH (23:06)
== END 2024-08-22 23:12 | disposition home or self-care (01) ==
LOC: EDH 20:28
DX: J06.9 Acute upper respiratory infection, unspecified (principal); Z20.822 Contact with and (suspected) exposure to COVID-19; Z88.1 Allergy status to other antibiotic agents; Z88.2 Allergy status to sulfonamides; Z90.89 Acquired absence of other organs; Z98.890 Other specified postprocedural states
CPT/HCPCS: 99284; 96374; 71045; 87635; 96361; 96375; 80048; 85025; 87880; 87804 ×2; 36415; 94640; J1885; J2919; J7030

== ENCOUNTER → 2024-11-07 | Outpatient (CLI) | payer MEDICAID ==
[~2024-11-07] MED LIST changes: +AUD IH
== END | disposition home or self-care (01) ==
LOC: RAH 07:02
PROVIDERS: ATTEND Physician Assistant Medical
DX: Z12.31 Encounter for screening mammogram for malignant neoplasm of breast (principal)
CPT/HCPCS: 77067